=== PATIENT | male | born 1970 | race Caucasian/White ===

== ENCOUNTER 2018-01-06 13:51 | Emergency (ER) | payer BC ==
[2018-01-06] MEDS ORDERED: NA CHLORIDE 0.9% 1,000 ML ONE (16:26)
[2018-01-06 17:38] LABS: Urine Blood NEGATIVE (NEG); Urine Glucose NEGATIVE (NEG); Urine Protein NEGATIVE (NEG); Urine Specific Gravity 1.025 (1.005-1.030); Urine pH 5.5 (5.0-7.0)
[2018-01-06 17:40] LABS: Urine Bacteria <20 /HPF (NONE SEEN); Urine RBC <5 /HPF (NONE SEEN)
[2018-01-06 17:41] LABS: Calcium Oxalate Crystals- Ur FEW (NONE SEEN); Urine Culture Reflex Order NOT NEEDED
[2018-01-06 17:56] LABS: Absolute Lymphocytes (CBC) 1.3 K/uL (0.7-4.9); Absolute Monocytes 0.9 K/uL (0.1-1.3); Absolute Neutrophil 8.3 K/uL (1.8-8.0); Basophils % 0.9 % (0-1.3); Eosinophils % 32.1 % (0-4.4); Hematocrit 42.1 % (39.6-49.0); Lymphocytes % 8.4 % (15.3-44.8); MCH 28.1 pg (27.0-35.0); MCV 88.5 fL (80-100); MPV 7.4 fL (7.6-11.3); Monocytes % 5.7 % (3.3-12.3); RBC Red Blood Cell Count 4.76 M/uL (4.33-5.43)
[2018-01-06 18:15] LABS: Bicarbonate 26 mEq/L (21-31); Glucose Level 77 mg/dL (65-120); Potassium 3.8 mEq/L (3.6-5.0); Sodium Level 138 mEq/L (135-145)
[2018-01-06 18:22] LABS: ALT/SGPT 29 IU/L (10-60); AST/SGOT 26 IU/L (10-42); Albumin 3.4 g/dL (3.2-5.5); Alkaline Phosphatase 68 IU/L (42-121); Amylase Level 64 U/L (28-100); BUN Blood Urea Nitrogen 12 mg/dL (6-20); Bilirubin Direct 0.1 mg/dL (0-0.2); Bilirubin Total 0.4 mg/dL (0.3-1.2); Protein, Total 6.9 g/dL (6.0-8.3)
--- NOTE | 2018-01-06 18:56 | RAD REPORT ---
EXAM DESCRIPTION: CT - Abdomen Pelvis W Contrast - 01/06/2018 6:36 pm CLINICAL HISTORY: Leg pain and swelling, abdominal pain, diarrhea with chills COMPARISON: None. TECHNIQUE: Biphasic, helical CT imaging of the abdomen and pelvis was performed following 100 ml non -ionic IV contrast. Oral contrast was given. All CT scans are performed using dose optimization technique as appropriate and may include automated exposure control or mA/KV adjustment according to patient size. FINDINGS: No suspicious findings in the lung bases. The liver, spleen, and pancreas show no suspicious findings. Gallbladder and biliary tree are also wi thout suspicious finding. Symmetric renal function is seen with no hydronephrosis or suspicious renal mass. Renal cysts are pre sent. No pyelonephritis identifiable. Lara of the urinary bladder are thickened but the bladder is c ontracted which precludes accurate assessment. Prostate gland and seminal vesicles within normal limi ts. No specific finding for prostatitis. No gastric dilatation or gastric wall thickening. No dilated large or small bowel. The appendix is no rmal. No free air, free fluid or inflammatory stranding. No mass or bulky lymphadenopathy. Small 18 millimeter fat only umbilical hernia is present. No adrenal abnormality. No acute bony findings. Degenerative and scoliotic changes are present within degenerative change rel atively advanced for patient age. Bilateral inguinal lymph nodes are present. Normal enhancement of the common femoral arteries and vei ns. IMPRESSION: No obstruction, appendicitis, free air or surgically emergent finding. No acute process seen. Urinary bladder is too contracted to allow all accurate assessment.
[2018-01-06] MEDS ORDERED: METRONIDAZOLE 500mg IVPB 500 MG/100 ML BAG IV ONE (19:07)
[2018-01-06] MEDS ORDERED: CIPROFLOXACIN 400mg IV 0 MG/0 ML BAG IV ONE (19:07)
--- NOTE | 2018-01-06 19:40 | ER ---
Nurse's Notes [facility] Name: Theodore Harrell Age: 47 yrs Sex: Male : 1970 Arrival Date: 01/06/2018 Time: 13:55 Bed 14 Private MD: Suhail Dolan Diagnosis: Dermatitis, unspecified-eczema;Functional dyspepsia Presentation: 01/06 14:02 Presenting complaint: Patient states: "Eczema and diverticulitis has flared up. sv Bilateral feet swelling, diarrhea. c/o chills. Transition of care: patient was not received from another setting of care. Onset of symptoms was December 30, 2017. Care prior to arrival: None. 14:02 Method Of Arrival: Ambulatory sv 14:02 Acuity: ROULA 3 sv 14:45 Risk Assessment: Do you want to hurt yourself or someone else? Patient reports no rb1 desire to harm self or others. Initial Sepsis Screen: Does the patient meet any 2 criteria? No. Patient's initial sepsis screen is negative. Does the patient have a suspected source of infection? No. Patient's initial sepsis screen is negative. Historical: - Allergies: 14:05 No Known Allergies; sv - Home Meds: 14:05 Advair Diskus Inhl [Active]; Singulair Oral [Active]; Prednisone Oral [Active]; sv - PMHx: 14:05 Ankylosing Spondylitis; Arthritis; Asthma; eczema; sv - PSHx: 14:05 Cataract; sv - Immunization history:: Adult Immunizations up to date. - Social history:: Smoking status: Patient/guardian denies using tobacco. - Ebola Screening: : Patient negative for fever greater than or equal to 101.5 degrees Fahrenheit, and additional compatible Ebola Virus Disease symptoms. Screenin:45 Abuse screen: Denies threats or abuse. Nutritional screening: No deficits noted. rb1 Tuberculosis screening: No symptoms or risk factors identified. Fall Risk None identified. Assessment: 14:45 General: Appears in no apparent distress. comfortable, Behavior is calm, cooperative. rb1 Pain: Denies pain. Neuro: Level of Consciousness is awake, alert, obeys commands, Oriented to person, place, time, situation. Cardiovascular: Capillary refill < 3 seconds is brisk in bilateral fingers. Respiratory: Airway is patent Respiratory effort is even, unlabored, Respiratory pattern is regular, symmetrical. GI: Bowel sounds present X 4 quads. Abd is soft. GI: Reports diarrhea. : No signs and/or symptoms were reported regarding the genitourinary system. Derm: Skin is pink, warm \\T\\ dry. Eczema noted to entire body. Musculoskeletal: Swelling present in right foot and left foot. 15:40 Reassessment: Patient appears in no apparent distress at this time. No changes from rb1 previously documented assessment. 16:35 Reassessment: Patient appears in no apparent distress at this time. Patient and/or rb1 family updated on plan of care and expected duration. Pain level reassessed. Patient is alert, oriented x 3, equal unlabored respirations, skin warm/dry/pink. Family at bedside. 17:14 Reassessment: Patient appears in no apparent distress at this time. Patient and/or rb1 family updated on plan of care and expected duration. Pain level reassessed. Patient is alert, oriented x 3, equal unlabored respirations, skin warm/dry/pink. 18:10 Reassessment: Patient appears in no apparent distress at this time. No changes from rb1 previously documented assessment. 19:15 General: Appears in no apparent distress. comfortable, Behavior is calm, cooperative. bb Pain: Denies pain. Neuro: Level of Consciousness is awake, alert, obeys commands, Oriented to person, place, time, situation, Speech is normal. Cardiovascular: Heart tones S1 S2 present Capillary refill < 3 seconds Pulses are all present. Edema is 2+ to left ankle and right ankle. Respiratory: Airway is patent Respiratory effort is even, unlabored, Respiratory pattern is regular, symmetrical, Breath sounds are clear bilaterally. GI: Abdomen is non-distended, Bowel sounds present X 4 quads. Abd is soft and non tender X 4 quads. : No signs and/or symptoms were reported regarding the genitourinary system. Derm: Skin is dry, Skin is red, Skin temperature is warm. Musculoskeletal: Circulation, motion, and sensation intact. 20:24 Reassessment: Patient and/or family updated on plan of care and expected duration. Pain bb level reassessed. Patient is alert, oriented x 3, equal unlabored respirations, skin warm/dry/pink. pt verbalized understanding of and agrees to plan of care discharge instructions given pt ambulated with steady gait to exit accompanied by spouse. Vital Signs: 14:05 BP 139 / 97; Pulse 73; Resp 18; Temp 97.8(TE); Pulse Ox 100% ; Weight 74.84 kg; Height sv 5 ft. 10 in. (177.80 cm); Pain 0/10; 15:00 BP 109 / 76; Pulse 88; Resp 19; Pulse Ox 100% on R/A; rb1 16:00 BP 137 / 90; Pulse 60; Resp 17; Pulse Ox 100% on R/A; rb1 17:00 BP 138 / 91; Pulse 60; Resp 18; Pulse Ox 100% on R/A; rb1 18:00 BP 136 / 91; Pulse 63; Resp 19; Pulse Ox 100% on R/A; rb1 19:15 BP 146 / 94; Pulse 78; Resp 16 S; Temp 98.2(O); Pulse Ox 100% on R/A; Pain 0/10; bb 20:25 BP 124 / 94; Pulse 74; Resp 16 S; Temp 97.6(O); Pulse Ox 100% on R/A; Pain 0/10; bb 14:05 Body Mass Index 23.67 (74.84 kg, 177.80 cm) sv [place] Coma Score: 19:15 Eye Response: spontaneous(4). Verbal Response: oriented(5). Motor Response: obeys bb commands(6). Total: 15. ED Course: 13:55 Patient arrived in ED. mr 13:56 Suhail Dolan MD is Private Physician. mr 14:04 Triage completed. sv 14:06 Arm band placed on left wrist. sv 14:06 Patient placed in waiting room, Patient notified of wait time. sv 14:45 Patient has correct armband on for positive identification. Placed in gown. Bed in low rb1 position. Call light in reach. Side rails up X 1. Pulse ox on. NIBP on. 15:15 Eloina Story [facility]-C [facility]. snw 15:15 Abraham Howard MD is Attending Physician. snw 15:28 Riddhi Sarkar, VITO is Primary Nurse. rb1 16:38 Missed attempt(s): 20 gauge in right antecubital area. Bleeding controlled, band aid dh3 applied, catheter tip intact. 16:41 First set of blood cultures drawn by mi. Missed attempt(s): 20 gauge in right hand. dh3 Bleeding controlled, band aid applied, catheter tip intact. 16:56 Second set of blood cultures drawn by me. Missed attempt(s): 20 gauge in left dh3 antecubital area. Bleeding controlled, band aid applied, catheter tip intact. 16:56 Initial lab(s) drawn, by me, sent to lab. dh3 17:16 Radiology exam delayed due to lab results not completed at this time. (BUN/Creatinine). sj 17:16 Inserted saline lock: 22 gauge in left antecubital area, using aseptic technique. rb1 17:46 Radiology exam delayed due to lab results not completed at this time. (BUN/Creatinine). mw3 18:34 Patient moved to OK via wheelchair. nj 18:35 CT completed. Patient tolerated procedure well. Patient moved back from OK. nj 18:37 CT Abd/Pelvis - W/Contrast In Process Unspecified. EDMS 19:15 Pulse ox on. NIBP on. bb 19:15 No provider procedures requiring assistance completed. bb 19:36 Suhail Dolan MD is Referral Physician. hannah 20:26 IV discontinued, intact, bleeding controlled, No redness/swelling at site. Pressure bb dressing applied. Administered Medications: 17:16 Drug: NS 0.9% 1000 ml Route: IV; Rate: 125 ml/hr; Site: left antecubital; rb1 20:18 Follow up: IV Status: Order to discontinue infusion; IV Intake: 500ml bb 19:34 CANCELLED (Duplicate Order): Cipro 400 mg 200 ml IVPB once over 60 mins hannah 19:34 CANCELLED (Duplicate Order): Flagyl 500 mg 100 ml IVPB at 200 ml/hr once over 30 mins hannah 20:10 Drug: SOLU-Medrol 125 mg Route: IVP; Site: left antecubital; bb 20:23 Follow up: Response: No adverse reaction bb 20:10 Drug: predniSONE 20 mg Route: PO; bb 20:23 Follow up: Response: No adverse reaction bb Intake: 20:18 IV: 500ml; Total: 500ml. bb Outcome: 19:39 Discharge ordered by . hannah 20:25 Discharged to home ambulatory, with family. bb 20:25 Condition: stable 20:25 Discharge instructions given to patient, Instructed on discharge instructions, follow up and referral plans. medication usage, Demonstrated understanding of instructions, follow-up care, medications, Prescriptions given X 3. 20:26 Patient left the ED. bb Signatures: Dispatcher [employer] Bruna Aguayo RN RN Abraham Mosher MD MD cha Therrien, Shelly, CONCRETE WORKER-C CONCRETE WORKER-Csnw Joi Harris mr Tripp, Nadiya Castillo RN RN Riddhi Pate RN RN [facility] Madhu, Brenda Rodriguez [facility] Idalia Marshall 3 Corrections: (The following items were deleted from the chart) 14:05 14:02 Presenting complaint: Patient states: "Eczema and diverticulitis has flared up. sv Bilateral feet swelling, diarrhea. sv
--- NOTE | 2018-01-06 19:40 | EDPHYS ---
Physician Documentation [facility] Name: Theodore Harrell Age: 47 yrs Sex: Male : 1970 Arrival Date: 01/06/2018 Time: 13:55 Bed 14 Private MD: Suhail Dolan ED Physician LeeAbraham HPI: 01/06 15:55 This 47 yrs old Male presents to ER via Ambulatory with complaints of Feet snw Swelling, Abdominal Pain. 15:55 The patient presents with abdominal pain in the lower abdomen. Onset: The snw symptoms/episode began/occurred suddenly, 1 week(s) ago, and improved. The symptoms do not radiate. Associated signs and symptoms: Pertinent positives: eczema flare-up. The symptoms are described as steady. Severity of pain: At its worst the pain was mild moderate. The patient has experienced similar episodes in the past, chronically. See Dr. Dolan. Historical: - Allergies: 14:05 No Known Allergies; sv - Home Meds: 14:05 Advair Diskus Inhl [Active]; Singulair Oral [Active]; Prednisone Oral [Active]; sv - PMHx: 14:05 Ankylosing Spondylitis; Arthritis; Asthma; eczema; sv - PSHx: 14:05 Cataract; sv - Immunization history:: Adult Immunizations up to date. - Social history:: Smoking status: Patient/guardian denies using tobacco. - Ebola Screening: : Patient negative for fever greater than or equal to 101.5 degrees Fahrenheit, and additional compatible Ebola Virus Disease symptoms. ROS: 15:55 Constitutional: Negative for fever, chills, and weight loss, Eyes: Negative for injury, snw pain, redness, and discharge, ENT: Negative for injury, pain, and discharge, Neck: Negative for injury, pain, and swelling, Cardiovascular: Negative for chest pain, palpitations, and edema, Respiratory: Negative for shortness of breath, cough, wheezing, and pleuritic chest pain, Back: Negative for injury and pain, : Negative for injury, bleeding, discharge, and swelling, MS/Extremity: Negative for injury and deformity, Neuro: Negative for headache, weakness, numbness, tingling, and seizure. 15:55 Abdomen/GI: Positive for abdominal pain. 15:55 Skin: Positive for eczema flare. Exam: 15:47 Constitutional: This is a well developed, well nourished patient who is awake, alert, snw and in no acute distress. Head/Face: Normocephalic, atraumatic. Eyes: Pupils equal round and reactive to light, extra-ocular motions intact. Lids and lashes normal. Conjunctiva and sclera are non-icteric and not injected. Cornea within normal limits. Periorbital areas with no swelling, redness, or edema. ENT: Nares patent. No nasal discharge, no septal abnormalities noted. Tympanic membranes are normal and external auditory canals are clear. Oropharynx with no redness, swelling, or masses, exudates, or evidence of obstruction, uvula midline. Mucous membranes moist. Neck: Trachea midline, no thyromegaly or masses palpated, and no cervical lymphadenopathy. Supple, full range of motion without nuchal rigidity, or vertebral point tenderness. No Meningismus. Chest/axilla: Normal chest wall appearance and motion. Nontender with no deformity. No lesions are appreciated. Cardiovascular: Regular rate and rhythm with a normal S1 and S2. No gallops, murmurs, or rubs. Normal PMI, no JVD. No pulse deficits. 15:47 Back: No spinal tenderness. No costovertebral tenderness. Full range of motion. MS/ Extremity: Pulses equal, no cyanosis. Neurovascular intact. Full, normal range of motion. Neuro: Awake and alert, GCS 15, oriented to person, place, time, and situation. Cranial nerves II-XII grossly intact. Motor strength 5/5 in all extremities. Sensory grossly intact. Cerebellar exam normal. Normal gait. Psych: Awake, alert, with orientation to person, place and time. Behavior, mood, and affect are within normal limits. 15:47 Respiratory: the patient does not display signs of respiratory distress, Respirations: shallow respirations, tachypnea, Breath sounds: wheezing: inspiratory is heard in the right upper lobe. 15:47 Abdomen/GI: Inspection: distension, Bowel sounds: diminished, Palpation: nontender, in all quadrants. 15:47 Skin: Appearance: Color: erythematous, Temperature: warm, Moisture: flaky, peeling. Vital Signs: 14:05 BP 139 / 97; Pulse 73; Resp 18; Temp 97.8(TE); Pulse Ox 100% ; Weight 74.84 kg; Height sv 5 ft. 10 in. (177.80 cm); Pain 0/10; 15:00 BP 109 / 76; Pulse 88; Resp 19; Pulse Ox 100% on R/A; rb1 16:00 BP 137 / 90; Pulse 60; Resp 17; Pulse Ox 100% on R/A; rb1 17:00 BP 138 / 91; Pulse 60; Resp 18; Pulse Ox 100% on R/A; rb1 18:00 BP 136 / 91; Pulse 63; Resp 19; Pulse Ox 100% on R/A; rb1 19:15 BP 146 / 94; Pulse 78; Resp 16 S; Temp 98.2(O); Pulse Ox 100% on R/A; Pain 0/10; bb 20:25 BP 124 / 94; Pulse 74; Resp 16 S; Temp 97.6(O); Pulse Ox 100% on R/A; Pain 0/10; bb 14:05 Body Mass Index 23.67 (74.84 kg, 177.80 cm) sv [place] Coma Score: 19:15 Eye Response: spontaneous(4). Verbal Response: oriented(5). Motor Response: obeys bb commands(6). Total: 15. MDM: 15:15 Patient medically screened. snw 17:40 Data reviewed: vital signs, nurses notes. Data interpreted: Pulse oximetry: on room air snw is 100 %. Interpretation: normal. Counseling: I had a detailed discussion with the patient and/or guardian regarding: the historical points, exam findings, and any diagnostic results supporting the discharge/admit diagnosis, the presence of at least one elevated blood pressure reading (>120/80) during this emergency department visit, lab results, radiology results. Transition of care: After a detail discussion of the patient's case, care is transferred to Abraham Howard MD. 01/06 15:34 Order name: Amylase, Serum; Complete Time: 18:27 snw 01/06 15:34 Order name: Basic Metabolic Panel; Complete Time: 18:27 snw 01/06 15:34 Order name: CBC with Diff snw 01/06 15:34 Order name: Creatinine for Radiology; Complete Time: 18:27 snw 01/06 15:34 Order name: Hepatic Function; Complete Time: 18:27 snw 01/06 15:34 Order name: Urine Microscopic Only; Complete Time: 17:44 snw 01/06 15:11 Order name: CT Abd/Pelvis - W/Contrast; Complete Time: 19:05 [facility] 01/06 15:34 Order name: Blood Culture Adult (2) [facility] 01/06 17:24 Order name: Urine Dipstick--Ancillary (enter results) ag 01/06 17:25 Order name: Urine Dipstick-Ancillary; Complete Time: 17:40 EDMS 01/06 15:34 Order name: IV Saline Lock; Complete Time: 17:17 [facility] 01/06 15:34 Order name: Labs collected and sent; Complete Time: 17:17 [facility] 01/06 15:34 Order name: Urine Dipstick-Ancillary (obtain specimen); Complete Time: 19:06 [facility] 01/06 17:14 Order name: Labs - recollect needed; Complete Time: 19:07 ag Administered Medications: 17:16 Drug: NS 0.9% 1000 ml Route: IV; Rate: 125 ml/hr; Site: left antecubital; rb1 20:18 Follow up: IV Status: Order to discontinue infusion; IV Intake: 500ml bb 19:34 CANCELLED (Duplicate Order): Cipro 400 mg 200 ml IVPB once over 60 mins hannah 19:34 CANCELLED (Duplicate Order): Flagyl 500 mg 100 ml IVPB at 200 ml/hr once over 30 mins hannah 20:10 Drug: SOLU-Medrol 125 mg Route: IVP; Site: left antecubital; bb 20:23 Follow up: Response: No adverse reaction bb 20:10 Drug: predniSONE 20 mg Route: PO; bb 20:23 Follow up: Response: No adverse reaction bb Disposition: 19:43 Co-signature as Attending Physician, Abraham Howard MD I agree with the assessment and hannah plan of care. Disposition: 01/06/18 19:39 Discharged to Home. Impression: Dermatitis, unspecified - eczema, Functional dyspepsia. - Condition is Stable. - Discharge Instructions: Abdominal Pain, Adult, Rash, Abdominal Pain, Adult, [id number], Rash, [id number]. - Prescriptions for Benadryl 25 mg Oral Capsule - take 1 capsule by ORAL route every 6 hours As needed; 30 tablet. Pepcid 20 mg Oral Tablet - take 1 tablet by ORAL route every 12 hours for 10 days; 20 tablet. Medrol (Roque) 4 mg Oral Tablets, Dose Pack - take 1 tablet by ORAL route as directed - follow package instructions; 1 packet. - Medication Reconciliation Form, Thank You Letter, Antibiotic Education, Prescription Opioid Use form. - Follow up: Suhail Dloan MD; When: 2 - 3 days; Reason: Recheck today's complaints, Continuance of care, Re-evaluation by your physician. - Problem is new. - Symptoms have improved. Signatures: Dispatcher [employer] EDBruna Ashley, RN RN Abraham Mosher MD MD cha Therrien, Shelly, DEPUTY PROBATION OFFICER-C DEPUTY PROBATION OFFICER-Csnw Nadiya Bryan RN RN bb Jamia Garcia Rebecca, RN RN rb1 Corrections: (The following items were deleted from the chart) 19:34 18:36 Cipro 400 mg 200 ml IVPB once over 60 mins ordered. formerly [facility] 19:34 18:36 Flagyl 500 mg 100 ml IVPB at 200 ml/hr once over 30 mins ordered. formerly [facility] 20:26 19:39 01/06/2018 19:39 Discharged to Home. Impression: Dermatitis, unspecified - bb eczema; Functional dyspepsia. Condition is Stable. Forms are Medication Reconciliation Form, Thank You Letter, Antibiotic Education, Prescription Opioid Use. Follow up: Suhail Dolan; When: 2 - 3 days; Reason: Recheck today's complaints, Continuance of care, Re-evaluation by your physician. Problem is new. Symptoms have improved. hannah
[2018-01-06] MEDS ORDERED: predniSONE 20 MG TAB ONE (20:10)
[2018-01-06] MEDS ORDERED: METHYLPREDNISOLONE 125 MG INJ ONE (20:10)
[2018-01-06 20:37] VITALS: O2SAT 100
[2018-01-06 20:44] VITALS: BP 124/94; TEMP 97.6
[2018-01-06 21:03] LABS: Blood Morphology Comment NOT SEEN (NOT SEEN); Platelet Estimate INCR
== END 2018-01-06 20:26 | disposition home or self-care (01) ==
LOC: ER 13:51
DX: K30 Functional dyspepsia (principal); L30.9 Dermatitis, unspecified; J45.909 Unspecified asthma, uncomplicated
CPT/HCPCS: 36415; 74177; 80048; 80076; 81003; 81015; 82150; 85025; 87040; 96361; 96374; 99284; J0744; J2930; J7030; J7512; Q9967

== ENCOUNTER 2018-04-12 13:10 | Inpatient (IN) | payer BC ==
[2018-04-12 13:44] LABS: Absolute Lymphocytes (CBC) 0.7 K/uL (0.7-4.9); Absolute Monocytes 1.2 K/uL (0.1-1.3); Basophils % 0.2 % (0-1.3); Eosinophils % 0.5 % (0-4.4); Hematocrit 43.5 % (39.6-49.0); Lymphocytes % 3.2 % (15.3-44.8); MCH 29.7 pg (27.0-35.0); MCV 87.5 fL (80-100); RBC Red Blood Cell Count 4.97 M/uL (4.33-5.43)
[2018-04-12] MEDS ORDERED: NA CHLORIDE 0.9% 1,000 ML ONE (13:52)
[2018-04-12] MEDS ORDERED: MORPHINE 4 MG/ML SYR ONE (13:52)
[2018-04-12] MEDS ORDERED: ONDANSETRON 4 MG/2 ML VIAL ONE (13:52)
[2018-04-12 14:20] LABS: Albumin 3.2 g/dL (3.4-5.0); Bilirubin Direct 0.2 mg/dL (0-0.2); Bilirubin Total 0.7 mg/dL (0.2-1.0); Protein, Total 7.2 g/dL (6.4-8.2)
[2018-04-12] MEDS ORDERED: PIPER/TAZO/NS 3.375gm 3.375 GM/100 ML BAG ONE (14:27)
[2018-04-12] MEDS ORDERED: METRONIDAZOLE 500mg IVPB 500 MG/100 ML BAG IV ONE (14:27)
--- NOTE | 2018-04-12 14:32 | RAD REPORT ---
EXAM DESCRIPTION: CT - Abdomen Pelvis W Contrast - 04/12/2018 2:12 pm CLINICAL HISTORY: ABD PAIN generalized abdominal pain COMPARISON: Abdomen Pelvis W Contrast dated 01/06/2018 TECHNIQUE: Computed axial tomography of the abdomen pelvis was obtained. 100 cc Isovue-300 was admin istered intravenously. Oral contrast was not requested which limits evaluation of bowel. All CT scans are performed using dose optimization technique as appropriate and may include automated exposure control or mA/KV adjustment according to patient size. FINDINGS: The liver, spleen, pancreas, adrenal and kidneys appear unremarkable. The wall of the sigmoid colon is thickened. Diverticula are present. Stranding is seen within the adj acent fat. A 2 centimeter abscess lies to the left of the sigmoid colon. A small to moderate amount o f pneumoperitoneum is present within the abdomen and upper pelvis. Fluid-filled small-bowel loops are upper limits normal caliber. Small amount ascites is present. A small umbilical hernia is present. Small bilateral hernias are present. The prostate gland is mildl y to moderately enlarged IMPRESSION: Sigmoid diverticulitis with 2 centimeter abscess. Small to moderate amount of pneumoperitoneum. This probably indicates a perforated viscus. The site i s not clearly delineated. However given the diverticulitis a perforated diverticulum is considered mo st likely Examination was discussed with Dr Mora in the Emergency Room at 2:25 p.m. 04/12/2018
[2018-04-12 14:57] LABS: Blood Morphology Comment NOT SEEN (NOT SEEN); Platelet Estimate ADEQ
[2018-04-12 15:18] LABS: Urine Bacteria NONE SEEN /HPF (NONE SEEN); Urine RBC <5 /HPF (NONE SEEN)
[2018-04-12 15:19] LABS: Urine Culture Reflex Order NOT NEEDED
[2018-04-12] MEDS: Ringers Lactate 1,000 ML IV SCH ×2 (16:00→20:24)
[2018-04-12] MEDS: ERTAPENEM NA 1 GM in NA CHLORIDE 0.9% 100 ML IVPB SCH (16:00)
--- NOTE | 2018-04-12 16:05 | P.HP ---
Certification for Inpatient Patient admitted to: Inpatient With expected LOS: >2 Midnights Practitioner: I am a practitioner with admitting privileges, knowledge of patient current condition, hospital course, and medical plan of care. Services: Services provided to patient in accordance with Admission requirements found in Title 42 Section 412.3 of the Code of Federal Regulations Patient History Date of Service: 04/12/18 Reason for admission: Abdominal pain perforated diverticulitis History of Present Illness: Patient is 47 years of age admitted with sudden onset of abdominal pain left lower quadrant and was found to have perforated diverticulitis currently he complains of abdominal pain. No other complaints seen by general surgery will be admitted to the floor for IV antibiotics Allergies No Known Allergies Allergy (Unverified 01/04/16 17:47) Home medications list reviewed: No - Past Medical/Surgical History -: Ankylosing spondylitis -: Asthma -: Eczema Review of Systems General: Malaise Respiratory: Shortness of Breath Gastrointestinal: Abdominal Pain Integumentary: Rash Physical Examination - Vital Signs Temperature: 97.6 F Blood Pressure: 127/94 Pulse: 74 Respirations: 16 Pulse Ox (%): 100 - Physical Exam General: Alert, Oriented x3 HEENT: Atraumatic Neck: Supple Respiratory: Expiratory wheezes Cardiovascular: Regular rate/rhythm, Normal S1 S2, Edema (On +edema) Gastrointestinal: Normal bowel sounds, Tenderness (Tenderness in the left lower quadrant) Musculoskeletal: No clubbing, Swelling Integumentary: Rash(es) Neurological: Normal speech (Patient has generalized eczema) - Studies Laboratory Data (last 24 hrs) 04/12/18 14:00: Creatinine 0.90 04/12/18 14:00: WBC 23.0 H*, Hgb 14.7, Hct 43.5, Plt Count 392 04/12/18 14:00: Sodium 142, Potassium 4.0, BUN 21 H, Creatinine 1.00, Glucose 111 H, Total Bilirubin 0.7, AST 12 L, ALT 24, Alkaline Phosphatase 60, Lipase 68 L Assessment and Plan - Problems (Diagnosis) (1) Perforation of sigmoid colon due to diverticulitis Current Visit: Yes Status: Acute Plan: Patient is 47 years of age with a history of asthma eczema and ankylosing spondylitis admitted with perforated sigmoid diverticulitis white count is elevated patient admitted to the hospital seen by general surgery IV antibiotics for now Radiology report : Sigmoid diverticulitis with 2 centimeter abscess. Small to moderate amount of pneumoperitoneum. This probably indicates a perforated viscus. The site is not clearly delineated. However given the diverticulitis a perforated diverticulum is considered most likely - Advance Directives Does patient have a Living Will: No Does patient have a Durable POA for Healthcare: No
[2018-04-12] MEDS: INSULIN -REGULAR HUMAN 50 UNIT/0.5 ML ML SQ SCH ×3 (16:30→23:59)
--- NOTE | 2018-04-12 17:11 | ER ---
Nurse's Notes [facility] Name: Theodore Harrell Age: 47 yrs Sex: Male : 1970 Arrival Date: 04/12/2018 Time: 13:13 Bed 27 Private MD: Suhail Dolan Diagnosis: Diverticulitis, diverticular abscess, pneumopertineum, perforated viscous Presentation: 04/12 13:24 Presenting complaint: Patient states: generalized abd pain that radiates toward back ss with abd distention that began suddenly at 11 PM last night. Transition of care: patient was not received from another setting of care. Onset of symptoms was April 11, 2018. Risk Assessment: Do you want to hurt yourself or someone else? Patient reports no desire to harm self or others. Initial Sepsis Screen: Does the patient meet any 2 criteria? No. Patient's initial sepsis screen is negative. Does the patient have a suspected source of infection? No. Patient's initial sepsis screen is negative. Care prior to arrival: None. 13:24 Method Of Arrival: Ambulatory ss 13:24 Acuity: ROULA 2 ss Triage Assessment: 14:12 General: Appears in no apparent distress. uncomfortable. Pain: Complains of pain in wh abdomen Pain began 12 hours ago Also complains of loose watery stool. GI: Abdomen is round distended, Bowel sounds present X 4 quads. Abd is rigid Reports belly pain for the last 12 hours. 14:14 General: Behavior is calm, cooperative, appropriate for age. Historical: - Allergies: 15:49 No Known Allergies; - Home Meds: 15:48 Advair Diskus Inhl 1 puff 2 times per day [Active]; prednisone 20 mg oral tab once wh daily [Active]; Singulair Oral 1 tab once daily [Active]; proair as needed [Active]; celecoxib 100 mg Oral cap 2 caps once daily [Active]; - PMHx: 13:26 Ankylosing Spondylitis; Arthritis; Asthma; eczema; Diverticulitis; ss - Immunization history:: Adult Immunizations up to date. - Social history:: Smoking status: Patient uses tobacco products, chewing tobacco. - Ebola Screening: : Patient denies exposure to infectious person Patient denies travel to an Ebola-affected area in the 21 days before illness onset. Screenin:12 Abuse screen: Denies threats or abuse. Denies injuries from another. Nutritional wh screening: No deficits noted. Tuberculosis screening: No symptoms or risk factors identified. Fall Risk None identified. Assessment: 14:16 General: Appears in no apparent distress. uncomfortable, Behavior is calm, cooperative, wh appropriate for age. Pain: Complains of pain in abdomen Pain does not radiate. Pain began 12 hours ago Is continuous. Neuro: Level of Consciousness is awake, alert, obeys commands, House Carpenter Helper are equal bilaterally. Cardiovascular: Heart tones S1 S2 Capillary refill < 3 seconds. Respiratory: Airway is patent Respiratory effort is even, unlabored, Respiratory pattern is regular, symmetrical, Breath sounds are clear bilaterally. GI: Abdomen is distended, Bowel sounds present X 4 quads. Abd is rigid Reports abd pain in the last 12 hours with loose watery stool. : No signs and/or symptoms were reported regarding the genitourinary system. EENT: No signs and/or symptoms were reported regarding the EENT system. Derm: Skin is intact, is healthy with good turgor, Skin is pink, warm \T\ dry. normal. Musculoskeletal: Range of motion: intact in all extremities. 14:42 Reassessment: Patient appears in no apparent distress at this time. Patient and/or wh family updated on plan of care and expected duration. Pain level reassessed. Patient is alert, oriented x 3, equal unlabored respirations, skin warm/dry/pink. 15:43 Reassessment: Patient appears in no apparent distress at this time. Patient and/or wh family updated on plan of care and expected duration. Pain level reassessed. Patient is alert, oriented x 3, equal unlabored respirations, skin warm/dry/pink. 16:53 Reassessment: Patient appears in no apparent distress at this time. Patient and/or wh family updated on plan of care and expected duration. Pain level reassessed. Patient is alert, oriented x 3, equal unlabored respirations, skin warm/dry/pink. 18:16 Reassessment: Patient appears in no apparent distress at this time. Patient and/or wh family updated on plan of care and expected duration. Pain level reassessed. Patient is alert, oriented x 3, equal unlabored respirations, skin warm/dry/pink. Vital Signs: 13:26 BP 137 / 95; Resp 22; Weight 72.57 kg; Height 5 ft. 10 in. (177.80 cm); ss 14:42 BP 144 / 87; Pulse 71; Resp 18; Pulse Ox 97% on R/A; wh 15:43 BP 130 / 77; Pulse 74; Resp 17; Pulse Ox 96% on R/A; wh 16:53 BP 125 / 76; Pulse 70; Resp 17; Pulse Ox 94% on R/A; wh 18:16 BP 115 / 74; Pulse 72; Resp 18; Temp 99.3; Pulse Ox 95% on R/A; wh 13:26 Body Mass Index 22.96 (72.57 kg, 177.80 cm) ED Course: 13:13 Patient arrived in ED. mr 13:13 Suhail Dolan MD is Private Physician. mr 13:22 Faizan Mora MD is Attending Physician. kdr 13:25 Triage completed. ss 13:26 Arm band placed on right wrist. ss 13:27 Nir Lantigua is Primary Nurse. wh 13:40 Inserted saline lock: 20 gauge in right antecubital area, using aseptic technique. wh Blood collected. 14:12 CT completed. Patient moved to CT via stretcher. Patient moved back from CT. bq 14:12 CT Abd/Pelvis - W/Contrast In Process Unspecified. EDMS 14:16 Patient has correct armband on for positive identification. Placed in gown. Bed in low wh position. Call light in reach. Side rails up X 1. senior mortgage underwriter on. Pulse ox on. NIBP on. 16:39 Eric Kaye MD is Hospitalizing Provider. kdr 18:18 No provider procedures requiring assistance completed. Patient admitted, IV remains in place. Administered Medications: 13:44 CANCELLED (Duplicate Order): morphine 4 mg IVP once 13:44 CANCELLED (Duplicate Order): Zofran 4 mg IVP once; over 2 minutes 13:52 Drug: Zofran 4 mg Route: IVP; Site: right antecubital; 16:55 Follow up: Response: No adverse reaction 13:52 Drug: NS 0.9% 1000 ml Route: IV; Rate: 1 bolus; Site: right antecubital; 16:56 Follow up: IV Status: Completed infusion 13:53 Drug: morphine 4 mg Route: IVP; Site: right antecubital; 16:55 Follow up: Response: No adverse reaction 14:42 Drug: Zosyn 3.375 grams Route: IVPB; Infused Over: 60 mins; Site: right antecubital; 16:16 Follow up: Response: No adverse reaction; IV Status: Completed infusion 15:36 Drug: Flagyl 500 mg Volume: 100 ml; Route: IVPB; Rate: 200 ml/hr; Infused Over: 30 wh mins; Site: right antecubital; 16:17 Follow up: Response: No adverse reaction; Rate change ml/hr; IV Status: Completed wh infusion 16:16 Drug: InvANZ 1 grams Route: IVPB; Infused Over: 30 mins; Site: right antecubital; 16:55 Follow up: Response: No adverse reaction; IV Status: Completed infusion Outcome: 16:41 Decision to Hospitalize by Provider. kdr 18:19 Admitted to Med/surg accompanied by nurse, family with patient, via wheelchair, room 231, with chart, Report called to Angie PADRON 18:19 Condition: good 18:19 Discharge instructions given to patient, family, Instructed on the need for admit, Demonstrated understanding of 18:19 Patient left the ED. Signatures: Dispatcher [employer] EDMS Faizan Mora MD MD [facility] Joi Harris mr P[place]te Mark Shelby, RN RN [place]ir Corrections: (The following items were deleted from the chart) 15:49 13:26 Allergies: No Known Allergies; [facility] 15:49 13:26 Home Meds: Advair Diskus Inhl; [facility] 15:49 13:26 Home Meds: Prednisone Oral; [facility] 15:49 13:26 Home Meds: Singulair Oral; [facility] 15:49 13:26 Home Meds: proair; [facility] 18:24 18:16 BP 115 / 74; Pulse 72bpm; Resp 18bpm; Pulse Ox 95% RA; [facility]
--- NOTE | 2018-04-12 17:11 | EDPHYS ---
Physician Documentation [facility] Name: Theodore Harrell Age: 47 yrs Sex: Male : 1970 Arrival Date: 04/12/2018 Time: 13:13 Bed 27 Private MD: Suhail Dolan ED Physician Faizan Mora HPI: 04/12 16:47 This 47 yrs old Male presents to ER via Ambulatory with complaints of kdr Abdominal Pain. 16:47 The patient presents with abdominal pain in the upper abdomen, in the left lower kdr quadrant. Onset: The symptoms/episode began/occurred suddenly, last night. The symptoms do not radiate. Associated signs and symptoms: Pertinent positives: nausea, Pertinent negatives: chest pain, constipation, diarrhea, dysuria, fever, headache, vomiting. The symptoms are described as burning, constant, sharp, steady. Modifying factors: The symptoms are alleviated by antacids, the symptoms are aggravated by coughing, breathing deeply, emotional upset, food, home stress, jumping, movement. Severity of pain: At its worst the pain was moderate in the emergency department the pain has improved. The patient has not recently seen a physician. Historical: - Allergies: 15:49 No Known Allergies; wh - Home Meds: 15:48 Advair Diskus Inhl 1 puff 2 times per day [Active]; prednisone 20 mg oral tab once wh daily [Active]; Singulair Oral 1 tab once daily [Active]; proair as needed [Active]; celecoxib 100 mg Oral cap 2 caps once daily [Active]; - PMHx: 13:26 Ankylosing Spondylitis; Arthritis; Asthma; eczema; Diverticulitis; ss - Immunization history:: Adult Immunizations up to date. - Social history:: Smoking status: Patient uses tobacco products, chewing tobacco. - Ebola Screening: : Patient denies exposure to infectious person Patient denies travel to an Ebola-affected area in the 21 days before illness onset. ROS: 16:47 Constitutional: Negative for fever, chills, and weight loss, Eyes: Negative for injury, kdr pain, redness, and discharge, Neck: Negative for injury, pain, and swelling, Cardiovascular: Negative for chest pain, palpitations, and edema, Respiratory: Negative for shortness of breath, cough, wheezing, and pleuritic chest pain, Back: Negative for injury and pain, : Negative for injury, bleeding, discharge, and swelling, MS/Extremity: Negative for injury and deformity, Skin: Negative for injury, rash, and discoloration, Neuro: Negative for headache, weakness, numbness, tingling, and seizure activity. Psych: Negative for depression, anxiety, suicide ideation, homicidal ideation, and hallucinations, Allergy/Immunology: Negative for hives, rash, and allergies, Endocrine: Negative for neck swelling, polydipsia, polyuria, polyphagia, and marked weight changes, Hematologic/Lymphatic: Negative for swollen nodes, abnormal bleeding, and unusual bruising. 16:47 Abdomen/GI: Positive for abdominal pain, nausea, abdominal distension, Negative for black/tarry stool, rectal pain, rectal bleeding. Exam: 17:24 Constitutional: This is a well developed, well nourished patient who is awake, alert, kdr and in moderate distress. Head/Face: Normocephalic, atraumatic. Eyes: Pupils equal round and reactive to light, extra-ocular motions intact. Lids and lashes normal. Conjunctiva and sclera are non-icteric and not injected. Cornea within normal limits. Periorbital areas with no swelling, redness, or edema. Neck: Trachea midline, no thyromegaly or masses palpated, and no cervical lymphadenopathy. Supple, full range of motion without nuchal rigidity, or vertebral point tenderness. No Meningismus. Chest/axilla: Normal chest wall appearance and motion. Nontender with no deformity. No lesions are appreciated. Cardiovascular: Regular rate and rhythm with a normal S1 and S2. No gallops, murmurs, or rubs. Normal PMI, no JVD. No pulse deficits. Respiratory: Lungs have equal breath sounds bilaterally, clear to auscultation and percussion. No rales, rhonchi or wheezes noted. No increased work of breathing, no retractions or nasal flaring. Back: No spinal tenderness. No costovertebral tenderness. Full range of motion. Skin: Warm, dry with normal turgor. Normal color with no rashes, no lesions, and no evidence of cellulitis. MS/ Extremity: Pulses equal, no cyanosis. Neurovascular intact. Full, normal range of motion. Neuro: Awake and alert, GCS 15, oriented to person, place, time, and situation. Cranial nerves II-XII grossly intact. Motor strength 5/5 in all extremities. Sensory grossly intact. Cerebellar exam normal. Normal gait. Psych: Awake, alert, with orientation to person, place and time. Behavior, mood, and affect are within normal limits. 17:24 Abdomen/GI: Inspection: distension, that is mild, Bowel sounds: high pitched, hyperactive, in all quadrants, Palpation: mild abdominal tenderness, rebound tenderness, is not appreciated, voluntary guarding. Vital Signs: 13:26 BP 137 / 95; Resp 22; Weight 72.57 kg; Height 5 ft. 10 in. (177.80 cm); ss 14:42 BP 144 / 87; Pulse 71; Resp 18; Pulse Ox 97% on R/A; wh 15:43 BP 130 / 77; Pulse 74; Resp 17; Pulse Ox 96% on R/A; wh 16:53 BP 125 / 76; Pulse 70; Resp 17; Pulse Ox 94% on R/A; wh 18:16 BP 115 / 74; Pulse 72; Resp 18; Temp 99.3; Pulse Ox 95% on R/A; wh 13:26 Body Mass Index 22.96 (72.57 kg, 177.80 cm) ss MDM: 16:41 Patient medically screened. kdr 17:24 Data reviewed: vital signs, nurses notes. Counseling: I had a detailed discussion with kdr the patient and/or guardian regarding: the historical points, exam findings, and any diagnostic results supporting the discharge/admit diagnosis, lab results, radiology results, the need for further work-up and treatment in the hospital. 04/12 13:22 Order name: Basic Metabolic Panel [facility] 04/12 13:22 Order name: CBC with Diff [facility] 04/12 13:22 Order name: Creatinine for Radiology [facility] 04/12 13:22 Order name: Hepatic Function; Complete Time: 14:38 [facility] 04/12 13:22 Order name: Lipase; Complete Time: 14:38 [facility] 04/12 13:22 Order name: Urine Microscopic Only [facility] 04/12 13:22 Order name: Basic Metabolic Panel; Complete Time: 14:38 EDMS 04/12 13:22 Order name: CBC with Automated Diff EDMS 04/12 13:22 Order name: Creatinine (Radiology Only); Complete Time: 14:38 EDMS 04/12 14:17 Order name: Manual Differential [facility] 04/12 15:33 Order name: CBC with Automated Diff EDMS 04/12 15:33 Order name: CBC with Automated Diff EDMS 04/12 15:33 Order name: CBC with Automated Diff EDMS 04/12 15:33 Order name: CBC with Automated Diff EDMS 04/12 15:33 Order name: CBC with Automated Diff EDMS 04/12 15:33 Order name: CBC with Automated Diff EDMS 04/12 15:33 Order name: CBC with Automated Diff EDMS 04/12 15:33 Order name: Comprehensive Metabolic Panel EDMS 04/12 15:33 Order name: Comprehensive Metabolic Panel EDMS 04/12 15:33 Order name: Comprehensive Metabolic Panel EDMS 04/12 15:33 Order name: Comprehensive Metabolic Panel EDMS 04/12 15:33 Order name: Comprehensive Metabolic Panel EDMS 04/12 15:33 Order name: Comprehensive Metabolic Panel EDMS 04/12 15:33 Order name: Comprehensive Metabolic Panel EDMS 04/12 15:33 Order name: Magnesium EDMS 04/12 15:33 Order name: Magnesium EDMS 04/12 15:34 Order name: Magnesium EDMS 04/12 15:34 Order name: Magnesium EDMS 04/12 15:34 Order name: Magnesium EDMS 04/12 15:34 Order name: Magnesium EDMS 04/12 13:22 Order name: IV Saline Lock; Complete Time: 13:38 kdr 04/12 13:22 Order name: Labs collected and sent; Complete Time: 13:38 kdr 04/12 13:22 Order name: Urine Dipstick-Ancillary (obtain specimen); Complete Time: 15:06 kdr 04/12 13:44 Order name: CT Abd/Pelvis - W/Contrast; Complete Time: 14:38 kdr 04/12 13:49 Order name: Labs - recollect needed; Complete Time: 13:58 eb 04/12 15:33 Order name: NPO EDMS 04/12 15:34 Order name: Magnesium EDMS 04/12 15:34 Order name: Phosphorus EDMS 04/12 15:34 Order name: Phosphorus EDMS 04/12 15:34 Order name: Phosphorus EDMS 04/12 15:34 Order name: Phosphorus EDMS 04/12 15:34 Order name: Phosphorus EDMS 04/12 15:34 Order name: Phosphorus EDMS 04/12 15:34 Order name: Phosphorus EDMS 04/12 15:34 Order name: Protime (+INR) EDMS 04/12 15:34 Order name: Protime (+INR) [facility] 04/12 16:06 Order name: CBC without Diff [facility] 04/12 16:37 Order name: Urine Dipstick--Ancillary (enter results) eb Administered Medications: 13:44 CANCELLED (Duplicate Order): morphine 4 mg IVP once 13:44 CANCELLED (Duplicate Order): Zofran 4 mg IVP once; over 2 minutes 13:52 Drug: Zofran 4 mg Route: IVP; Site: right antecubital; 16:55 Follow up: Response: No adverse reaction 13:52 Drug: NS 0.9% 1000 ml Route: IV; Rate: 1 bolus; Site: right antecubital; 16:56 Follow up: IV Status: Completed infusion 13:53 Drug: morphine 4 mg Route: IVP; Site: right antecubital; 16:55 Follow up: Response: No adverse reaction 14:42 Drug: Zosyn 3.375 grams Route: IVPB; Infused Over: 60 mins; Site: right antecubital; 16:16 Follow up: Response: No adverse reaction; IV Status: Completed infusion 15:36 Drug: Flagyl 500 mg Volume: 100 ml; Route: IVPB; Rate: 200 ml/hr; Infused Over: 30 mins; Site: right antecubital; 16:17 Follow up: Response: No adverse reaction; Rate change ml/hr; IV Status: Completed infusion 16:16 Drug: InvANZ 1 grams Route: IVPB; Infused Over: 30 mins; Site: right antecubital; 16:55 Follow up: Response: No adverse reaction; IV Status: Completed infusion Disposition: 04/12/18 16:41 Hospitalization ordered by Eric Kaye for Inpatient Admission. Preliminary diagnosis is Diverticulitis, diverticular abscess, pneumopertineum, perforated viscous. - Bed requested for Telemetry/MedSurg (Inpatient). - Status is Inpatient Admission. - Condition is Fair. - Problem is an acute exacerbation. - Symptoms have improved. UTI on Admission? No Signatures: Dispatcher [employer] EDNM Faizan Mora MD MD kdr Smirch, Shelby, RN RN [facility] Pacheco, Shana eb Corrections: (The following items were deleted from the chart) 13:44 13:43 morphine 4 mg IVP once ordered. [facility] 13:44 13:43 Zofran 4 mg IVP once; over 2 minutes ordered. [facility] 15:49 13:26 Allergies: No Known Allergies; [facility] 15:49 13:26 Home Meds: Advair Diskus Inhl; [facility] 15:49 13:26 Home Meds: Prednisone Oral; [facility] 15:49 13:26 Home Meds: Singulair Oral; [facility] 15:49 13:26 Home Meds: proair; [facility] 16:05 16:04 Blood Culture ordered. EDMS EDMS 17:30 16:41 Hospitalization Ordered by Eric Kaye MD for Inpatient Admission. eb Preliminary diagnosis is Diverticulitis, diverticular abscess, pneumopertineum, perforated viscous. Bed requested for Telemetry/MedSurg (Inpatient). Status is Inpatient Admission. Condition is Fair. Problem is an acute exacerbation. Symptoms have improved. UTI on Admission? No. kdr 18:19 17:30 04/12/2018 16:41 Hospitalization Ordered by Eric Kaye MD for Inpatient Admission. Preliminary diagnosis is Diverticulitis, diverticular abscess, pneumopertineum, perforated viscous. Bed requested for Telemetry/MedSurg (Inpatient). Status is Inpatient Admission. Condition is Fair. Problem is an acute exacerbation. Symptoms have improved. UTI on Admission? No. eb
[2018-04-12] MEDS: ARFORMOTEROL TARTRATE 15 MCG/2 ML VIAL.NEB NEB SCH ×2 (17:22→19:44)
--- NOTE | 2018-04-12 18:20 | CON ---
Date of Consultation: 04/12/2018 Brief History Of Present Illness: The patient is a 47-year-old male with a past history of diverticu litis x2 episodes in the past year, treated outpatient with antibiotics only on those occasions, who presents with approximately 1-day history of acute onset of abdominal pain globally with worsening do wn the left lower quadrant. He had some mild nausea. No vomiting. He continued to have bowel funct ion. His pain was significant. It is the worst it has ever been with respect to his diverticulitis. He came to the emergency room with the above-stated complaints. He has had some low-grade fever an d chills as well. No other complaints at this time. Since his admission to the hospital, he has rec eived antibiotics as well as IV fluids and pain medication. His symptoms have significantly improved since his admission, although continues to be present. Past Medical History: Significant for rheumatoid arthritis; pneumonia; eczema; and diverticulitis x2 episodes within the past year, both treated as outpatient with antibiotics. Past Surgical History: Elbow surgery, cataract surgery only. He has never had a colonoscopy before. Allergies: NO KNOWN DRUG ALLERGIES. Medications: None. Social History: He denies smoking, alcohol, or recreational drug use. Family History: Reviewed and noncontributory. Review of Systems: A 10-point review of systems other than HPI, denies. Physical Examination: General: At the time of my examination, he is awake, alert, and oriented. Psychiatric: He is appropriate and conversive. He is in no apparent distress. HEENT: Normocephalic. His sclerae are anicteric. His mucous membranes are moist. His dentition is poor. His oropharynx is clear otherwise. Neck: Supple. No JVD. Chest: Normal expansion and excursion. Cardiovascular: Regular rate and rhythm. Pulmonary: Clear to auscultation bilaterally. Abdomen: Slightly distended, soft, and he has moderate pain to palpation globally, worse in the supr apubic position. There is no focal peritonitis. No rebound. No guarding. Additionally, on the abd ominal exam, he has a small fat containing umbilical hernia. Extremities: No clubbing, cyanosis, or edema. He has had rheumatoid changes to the extremities on f ocused examination of the hands. Skin: Warm and dry. However, he has eczema over his abdomen. Laboratory Data: Reveals a white blood cell count of 22,000, hemoglobin 14.7, hematocrit of 43.5, pl atelet count 392, neutrophils 91%. His sodium is 142, potassium 4.0, chloride 109, carbon dioxide 28 , BUN 21, creatinine 0.9, glucose is 111, calcium 8.3, direct bilirubin 0.7, AST 12, ALT 24, lipase i s 68, alkaline phosphatase is 60. His CT scan performed of the abdomen and pelvis was officially lindsey d by Dr. Petersen as wall of the sigmoid colon is thickened. Diverticular present. Stranding is see n within the adjacent fat. A 2 cm abscess lies to the left of the sigmoid colon. A [id number] amount of pneumoperitoneum is present within the abdomen, however, pelvis fluid-filled small bowel loops to upper limit of normal. Small amount of ascites is present. Small umbilical hernia is prese nt. Small bilateral inguinal hernia present. The prostate gland is [id number] large. Impression: Sigmoid diverticulitis with a 2 cm abscess; [id number] pneumoperitoneum, probably indicating perforated viscus, the site is not clear to delineate, however, he has a diverticulitis a nd perforated diverticula is most likely. Assessment And Plan: This is a 47-year-old male who comes in with a history of diverticulitis, but n ow with complicated diverticulitis and diverticular abscess. 1.IV fluid hydration. 2.Antibiotic coverage. 3.I have discussed the risks, benefits, and alternatives of operative versus nonoperative interventi on including, but not limited to bleeding, infection, damage to surrounding tissue, need for further operating or procedures, the possibility that there could be injury to ureters as well as bladder as well as a colostomy creation, which may be permanent in a situation like this should emergency surger y be required. They agree to proceed with nonoperative management at this time with antibiotics and serial abdominal exams. Continue medical management per admitting physician. I will follow along you. JAIME/RAMIREZ Voice ID: [id number] Report ID: [id number]
[2018-04-12] MEDS: HYDROMORPHONE HCL 1 MG/ML INJ IV PRN ×2 (18:44→20:23)
[2018-04-12] MEDS: ONDANSETRON 4 MG/2 ML VIAL IV PRN (18:44)
[2018-04-12] MEDS: ALBUTEROL 2.5 MG/3 ML NEB SOL NEB PRN (19:44)
[2018-04-12 20:40] LABS: Urine Blood TRACE (NEG); Urine Glucose NEGATIVE (NEG); Urine Protein NEGATIVE (NEG); Urine Specific Gravity 1.015 (1.005-1.030); Urine pH 8.5 (5.0-7.0)
[2018-04-13] MEDS ORDERED: D50W 25 GM/50 ML SYRINGE IV ONE ×2 (00:04)
[2018-04-13] MEDS: ONDANSETRON 4 MG/2 ML VIAL IV PRN (00:33)
[2018-04-13] MEDS: HYDROMORPHONE HCL 1 MG/ML INJ IV PRN ×5 (00:33→15:34)
[2018-04-13] MEDS: ALBUTEROL 2.5 MG/3 ML NEB SOL NEB PRN ×3 (00:47→19:52)
[2018-04-13] MEDS: Ringers Lactate 1,000 ML IV SCH ×3 (05:20→18:40)
[2018-04-13 05:22] LABS: Absolute Lymphocytes (CBC) 0.7 K/uL (0.7-4.9); Absolute Monocytes 1.4 K/uL (0.1-1.3); Absolute Neutrophil 14.8 K/uL (1.8-8.0); Basophils % 0.3 % (0-1.3); Eosinophils % 0.9 % (0-4.4); Hematocrit 39.2 % (39.6-49.0); Lymphocytes % 4.3 % (15.3-44.8); MCH 29.4 pg (27.0-35.0); MCV 88.6 fL (80-100); MPV 7.9 fL (7.6-11.3); Monocytes % 8.3 % (3.3-12.3); RBC Red Blood Cell Count 4.42 M/uL (4.33-5.43)
[2018-04-13 05:28] LABS: Protime INR 1.36
[2018-04-13 05:32] LABS: ALT/SGPT 18 U/L (12-78); AST/SGOT 9 U/L (15-37); Alkaline Phosphatase 54 U/L (45-117); BUN Blood Urea Nitrogen 20 mg/dL (7-18); Bicarbonate 27 mmol/L (21-32); Bilirubin Total 0.8 mg/dL (0.2-1.0); Glucose Level 81 mg/dL (74-106); Magnesium 2.1 mg/dL (1.8-2.4); Phosphorus 2.6 mg/dL (2.5-4.9); Potassium 3.7 mmol/L (3.5-5.1); Protein, Total 6.9 g/dL (6.4-8.2); Sodium Level 141 mmol/L (136-145)
[2018-04-13] MEDS ORDERED: KCL 20 MEQ/100 mL IVPB 20 MEQ/100 ML BAG IV SCH (05:43)
[2018-04-13] MEDS: INSULIN -REGULAR HUMAN 50 UNIT/0.5 ML ML SQ SCH ×3 (06:00→18:00)
[2018-04-13] MEDS: D50W 25 GM/50 ML SYRINGE IV PRN ×2 (06:09→20:06)
[2018-04-13] MEDS: ARFORMOTEROL TARTRATE 15 MCG/2 ML VIAL.NEB NEB SCH ×2 (07:52→19:52)
[2018-04-13] MEDS ORDERED: HYDROMORPHONE HCL 2 MG/ML inj IV ONE (09:27)
[2018-04-13] MEDS: TRIAMCINOLONE 0.1% CREAM 15GM TOP SCH ×2 (09:49→20:08)
[2018-04-13] MEDS: MONTELUKAST 10 MG TAB PO SCH (09:54)
[2018-04-13] MEDS: predniSONE 20 MG TAB PO SCH (09:54)
--- NOTE | 2018-04-13 11:10 | P.PN ---
Subjective Date of Service: 04/13/18 Chief Complaint: Abdominal pain perforated diverticulitis Subjective: No new changes (Patient states pain improving, but has occasional wave of pain, no nausea, +passing gas.) Physical Examination - Vital Signs Temperature: 97.8 F Blood Pressure: 131/75 Pulse: 75 Respirations: 18 Pulse Ox (%): 97 - Physical Exam General: Alert, Cooperative, Mild distress HEENT: Mucous membr. moist/pink Gastrointestinal: Other (slightly firmer than prior exam, but patient was in chair and just walked over to bed to lie down, similar distention, similar tenderness to prior exam. ) Musculoskeletal: Other (rheumatoid joints ) Integumentary: Other (eczema over entire body) Neurological: Normal gait, Normal speech - Studies Laboratory Data (last 24 hrs) 04/12/18 14:00: Creatinine 0.90 04/12/18 14:00: WBC 23.0 H*, Hgb 14.7, Hct 43.5, Plt Count 392 04/12/18 14:00: Sodium 142, Potassium 4.0, BUN 21 H, Creatinine 1.00, Glucose 111 H, Total Bilirubin 0.7, AST 12 L, ALT 24, Alkaline Phosphatase 60, Lipase 68 L Assessment And Plan - Current Problems (Diagnosis) (1) Perforation of sigmoid colon due to diverticulitis Current Visit: Yes Status: Acute Plan: Diverticular Abscess - Gen: pain control is adequate at this time with dilaudid, did not require Q2 at night, but during day, did require Q2, I will give him single dose of 2mg dilaudid - Abd: will continue serial exams, I have discussed the possiblilty he will need emergent surgery and his condition, but he feels he has less pain and is improving somewhat, and was able to ambulate, his pain is predominantly in his back by his report due to his Rheumatoid Arthritis - ID: leukocytosis improving continue invanz 1 gram IV qday - FEN: continue IV hydration, electrolyte replacement protocol, continue NPO for now, will consider PICC line and TPN soon - prohylaxis: SCDs while in bed
[2018-04-13] MEDS: KETOROLAC 30 MG/ML INJ IV PRN (13:22)
--- NOTE | 2018-04-13 13:33 | PN ---
Date of Progress Note: 04/13/2018 Subjective: The patient is seen and examined. Chart reviewed and case discussed with RN and Dr. Renee. The patient complaining of significant back pain. Does have rheumatoid arthritis. His abdominal pain is somewhat the same as yesterday. Review of Systems: Negative except as above. Medications: List reviewed. Physical Examination: Vital Signs: Temperature 97.8, heart rate 75, blood pressure 131/75, respirations 18, O2 97% on room air. General: Awake, alert, oriented x3, in some mild distress, ill-appearing male. CV: S1, S2. No murmurs. Regular rate and rhythm. Peripheral pulses present. Respiratory: Moving air well bilaterally. No wheezing. No stridor. Gastrointestinal: Abdomen is mildly rigid. No distention. Bowel sounds hypoactive. Some voluntary guarding. No rebound tenderness. No signs of peritonitis. Extremities: No clubbing, cyanosis, edema. Neurologic: Nonfocal. Musculoskeletal: Point tenderness in the lumbar spine. Laboratory Data: Sodium 141, potassium 3.7, chloride 109, CO2 27, BUN 20, creatinine 0.9, glucose 81, calcium 8.3, phosphorus 8.6, magnesium 2.1. WBC 17.2, H and H 13 and 39.2, platelets 325, neutrophils 86%. No bands. Cultures , no culture specimens available. Assessment And Plan: A 47-year-old male with: 1. Sigmoid colon perforation secondary to acute diverticulitis with abscess. 2. Ankylosing spondylitis. 3. Rheumatoid arthritis. 4. Intermittent asthma. 5. Eczema. 6. Intractable lower back pain. 7. Gastrointestinal and deep venous thrombosis prophylaxis addressed. Plan: We will adjust pain medications and Toradol. Continue IV antibiotics. We will obtain blood cultures; however, yield will be low as the patient has already been on IV antibiotics. Continue pain medications. Appreciate Dr. Renee's input. We will keep n.p.o. for now. Medical management. No acute surgical intervention recommended by Dr. Renee at this time. SA/MODL Voice ID: [id number] Report ID: [id number] [facility] CENTERAntonieta
[2018-04-13] MEDS: ERTAPENEM NA 1 GM in NA CHLORIDE 0.9% 100 ML IVPB SCH (15:34)
--- NOTE | 2018-04-13 18:58 | RAD REPORT ---
EXAM DESCRIPTION: RAD - Lumbar Spine 3 Views - 04/13/2018 6:50 pm CLINICAL HISTORY: back pain FINDINGS: Mild to moderate scoliosis involves the thoracolumbar spine. No fracture or dislocation is seen. The bones are osteoporotic. Mild to moderate spondylosis involves lumbar spine mainly consisting of d isc space narrowing
[2018-04-13] MEDS: LATANOPROST OP SCH (20:10)
[2018-04-13] MEDS: NACHLORIDE 0.45% 1,000 ML IV SCH (20:34)
[2018-04-14] MEDS: D50W 25 GM/50 ML SYRINGE IV PRN
[2018-04-14] MEDS: NACHLORIDE 0.45% 1,000 ML IV SCH (01:23)
[2018-04-14] MEDS: ALBUTEROL 2.5 MG/3 ML NEB SOL NEB PRN (03:39)
[2018-04-14] MEDS: HYDROMORPHONE HCL 1 MG/ML INJ IV PRN (04:20)
[2018-04-14 05:10] LABS: Absolute Lymphocytes (CBC) 0.8 K/uL (0.7-4.9); Absolute Monocytes 1.3 K/uL (0.1-1.3); Absolute Neutrophil 10.8 K/uL (1.8-8.0); Basophils % 0.2 % (0-1.3); Eosinophils % 3.3 % (0-4.4); Hematocrit 38.3 % (39.6-49.0); Lymphocytes % 6.1 % (15.3-44.8); MCH 29.5 pg (27.0-35.0); MCV 89.5 fL (80-100); MPV 7.7 fL (7.6-11.3); Monocytes % 9.6 % (3.3-12.3); RBC Red Blood Cell Count 4.28 M/uL (4.33-5.43)
[2018-04-14 05:24] LABS: ALT/SGPT 19 U/L (12-78); AST/SGOT 13 U/L (15-37); Albumin 2.7 g/dL (3.4-5.0); Alkaline Phosphatase 54 U/L (45-117); BUN Blood Urea Nitrogen 18 mg/dL (7-18); Bicarbonate 26 mmol/L (21-32); Bilirubin Total 0.8 mg/dL (0.2-1.0); Glucose Level 77 mg/dL (74-106); Phosphorus 2.9 mg/dL (2.5-4.9); Potassium 3.7 mmol/L (3.5-5.1); Protein, Total 6.8 g/dL (6.4-8.2); Sodium Level 144 mmol/L (136-145)
[2018-04-14] MEDS: INSULIN -REGULAR HUMAN 50 UNIT/0.5 ML ML SQ SCH ×4 (06:00→18:00)
[2018-04-14] MEDS: ARFORMOTEROL TARTRATE 15 MCG/2 ML VIAL.NEB NEB SCH ×2 (07:53→19:55)
[2018-04-14] MEDS ORDERED: KCL 20 MEQ/100 mL IVPB 20 MEQ/100 ML BAG IV SCH (08:00)
[2018-04-14] MEDS: D5 0.45 NS 1,000 ML IV SCH ×3 (08:20→17:01)
[2018-04-14] MEDS: MONTELUKAST 10 MG TAB PO SCH (08:20)
[2018-04-14] MEDS: predniSONE 20 MG TAB PO SCH (08:21)
[2018-04-14] MEDS: TRIAMCINOLONE 0.1% CREAM 15GM TOP SCH ×2 (09:00→21:00)
[2018-04-14] MEDS: ERTAPENEM NA 1 GM in NA CHLORIDE 0.9% 100 ML IVPB SCH (17:01)
--- NOTE | 2018-04-14 18:06 | P.PN ---
Subjective Date of Service: 04/14/18 Primary Care Provider: None Chief Complaint: Abdominal pain perforated diverticulitis Subjective: Doing well (Patient doing slightly better. Patient without significant pain. Patient is ambulating.) Physical Examination - Vital Signs Temperature: 97.7 F Blood Pressure: 158/89 Pulse: 78 Respirations: 17 Pulse Ox (%): 96 - Physical Exam General: Alert, In no apparent distress, Oriented x3, Cooperative HEENT: Atraumatic Neck: Supple Respiratory: Clear to auscultation bilaterally, Normal air movement Cardiovascular: Normal pulses, Regular rate/rhythm Gastrointestinal: Hypoactive (Throughout), Non-distended, No masses, No rebound , No guarding, Tenderness (Less pain to the abdomen noted) Musculoskeletal: No erythema, No tenderness, No warmth Integumentary: No tenderness/swelling, No erythema, No warmth, No cyanosis Neurological: Normal speech, Normal strength at 5/5 x4 extr, Normal tone, Normal affect Lymphatics: No axilla or inguinal lymphadenopathy - Studies Medications List Reviewed: Yes Assessment & Plan Discharge Plan: Home Plan to discharge in: Greater than 2 days Physician Review Additional Text: Assessment: Diverticulitis with perforation Plan: Spoke with surgery. Will continue monitor patient closely. Surgery has advanced his diet to ice chips. Will continue monitor patient closely. Recommendation to increase ambulation. Patient may require TPN if his progress is slow. If the patient worsens patient may require surgical intervention. Will continue monitor closely. Time Spent Managing Pts Care (In Minutes): 55
[2018-04-14] MEDS: LATANOPROST OP SCH (21:00)
[2018-04-15] MEDS: D5 0.45 NS 1,000 ML IV SCH ×3 (00:31→21:05)
[2018-04-15 05:12] LABS: Absolute Lymphocytes (CBC) 0.8 K/uL (0.7-4.9); Absolute Monocytes 0.9 K/uL (0.1-1.3); Absolute Neutrophil 7.7 K/uL (1.8-8.0); Basophils % 0.5 % (0-1.3); Eosinophils % 4.5 % (0-4.4); Hematocrit 34.2 % (39.6-49.0); MCH 30.3 pg (27.0-35.0); MPV 7.7 fL (7.6-11.3); Monocytes % 8.9 % (3.3-12.3); RBC Red Blood Cell Count 3.93 M/uL (4.33-5.43)
[2018-04-15 05:30] LABS: ALT/SGPT 19 U/L (12-78); AST/SGOT 16 U/L (15-37); Albumin 2.3 g/dL (3.4-5.0); Alkaline Phosphatase 42 U/L (45-117); BUN Blood Urea Nitrogen 9 mg/dL (7-18); Bicarbonate 27 mmol/L (21-32); Bilirubin Total 0.5 mg/dL (0.2-1.0); Glucose Level 109 mg/dL (74-106); Phosphorus 3.1 mg/dL (2.5-4.9); Potassium 3.4 mmol/L (3.5-5.1); Protein, Total 6.1 g/dL (6.4-8.2); Sodium Level 144 mmol/L (136-145)
[2018-04-15] MEDS: INSULIN -REGULAR HUMAN 50 UNIT/0.5 ML ML SQ SCH ×4 (05:47→18:00)
[2018-04-15] MEDS: KCL 20 MEQ/100 mL IVPB 20 MEQ/100 ML BAG IV SCH ×2 (08:00→14:44)
[2018-04-15] MEDS: predniSONE 20 MG TAB PO SCH (10:14)
[2018-04-15] MEDS: MONTELUKAST 10 MG TAB PO SCH (10:14)
[2018-04-15] MEDS: TRIAMCINOLONE 0.1% CREAM 15GM TOP SCH ×2 (10:15→21:01)
[2018-04-15] MEDS: ARFORMOTEROL TARTRATE 15 MCG/2 ML VIAL.NEB NEB SCH ×2 (12:56→19:44)
--- NOTE | 2018-04-15 13:58 | P.PN ---
Subjective Date of Service: 04/15/18 Primary Care Provider: None Chief Complaint: Abdominal pain perforated diverticulitis Subjective: Improving (Patient tolerating ice chips. Pain improved. Patient ambulating.) Physical Examination - Vital Signs Temperature: 97.9 F Blood Pressure: 132/79 Pulse: 53 Respirations: 18 Pulse Ox (%): 97 - Physical Exam General: Alert, In no apparent distress, Oriented x3, Cooperative HEENT: Atraumatic Neck: Supple Respiratory: Clear to auscultation bilaterally, Normal air movement Cardiovascular: Normal pulses, Regular rate/rhythm Gastrointestinal: Normal bowel sounds, Soft and benign, Non-distended, No masses , No rebound, No guarding, Tenderness (Less pain to the abdomen noted.) Musculoskeletal: No erythema, No tenderness, No warmth Integumentary: No tenderness/swelling, No erythema, No warmth, No cyanosis Neurological: Normal speech, Normal strength at 5/5 x4 extr, Normal tone - Studies Medications List Reviewed: Yes Assessment & Plan - Problems (Diagnosis) (1) Perforation of sigmoid colon due to diverticulitis Onset Date: 04/14/18 Current Visit: Yes Status: Acute Plan: Patient is slowly improving. Diet to be advanced to clear liquid this morning. If tolerates diet then patient will likely have full liquid later tonight. Will continue with current antibiotic therapy. Case discussed with surgery. Anticipate discharge in the next 2-3 days. Discharge Plan: Home Plan to discharge in: 72 Hours Time Spent Managing Pts Care (In Minutes): 55
[2018-04-15] MEDS ORDERED: KCL 20 MEQ/100 mL IVPB 20 MEQ/100 ML BAG IV SCH (15:00)
[2018-04-15] MEDS: ERTAPENEM NA 1 GM in NA CHLORIDE 0.9% 100 ML IVPB SCH (17:20)
[2018-04-15] MEDS: ENOXAPARIN 40 MG/0.4 ML SQ SCH (17:22)
[2018-04-15] MEDS: LATANOPROST OP SCH (21:00)
[2018-04-16] MEDS: KETOROLAC 30 MG/ML INJ IV PRN (00:47)
[2018-04-16] MEDS: D5 0.45 NS 1,000 ML IV SCH ×2 (00:49→06:23)
[2018-04-16] MEDS ORDERED: KCL 20 MEQ/100 mL IVPB 20 MEQ/100 ML BAG IV SCH ×2 (01:07→08:00)
[2018-04-16 05:19] LABS: Absolute Monocytes 0.8 K/uL (0.1-1.3); Absolute Neutrophil 5.6 K/uL (1.8-8.0); Basophils % 0.6 % (0-1.3); Eosinophils % 4.5 % (0-4.4); Hematocrit 34.6 % (39.6-49.0); Lymphocytes % 12.8 % (15.3-44.8); MCH 29.5 pg (27.0-35.0); MCV 87.8 fL (80-100); MPV 7.5 fL (7.6-11.3); Monocytes % 10.1 % (3.3-12.3); RBC Red Blood Cell Count 3.94 M/uL (4.33-5.43)
[2018-04-16 05:51] LABS: ALT/SGPT 18 U/L (12-78); AST/SGOT 12 U/L (15-37); Albumin 2.3 g/dL (3.4-5.0); Alkaline Phosphatase 39 U/L (45-117); BUN Blood Urea Nitrogen 6 mg/dL (7-18); Bicarbonate 25 mmol/L (21-32); Bilirubin Total 0.4 mg/dL (0.2-1.0); Glucose Level 91 mg/dL (74-106); Magnesium 1.8 mg/dL (1.8-2.4); Phosphorus 3.3 mg/dL (2.5-4.9); Potassium 3.5 mmol/L (3.5-5.1); Sodium Level 143 mmol/L (136-145)
[2018-04-16] MEDS ORDERED: MAGNESIUM SULFATE 1 gm IVPB 1 GM/100 ML BAG IV ONE (07:00)
[2018-04-16] MEDS: ARFORMOTEROL TARTRATE 15 MCG/2 ML VIAL.NEB NEB SCH ×2 (07:50→20:07)
--- NOTE | 2018-04-16 08:44 | P.PN ---
Subjective Date of Service: 04/16/18 Primary Care Provider: Dr. Dolan Chief Complaint: Abdominal pain perforated diverticulitis Subjective: Other (Patient continues to improve. Less abdominal pain noted. Patient tolerating clear liquid and full liquid diet. Patient is passing gas and stool.) Physical Examination - Vital Signs Temperature: 98.4 F Blood Pressure: 128/70 Pulse: 56 Respirations: 18 Pulse Ox (%): 94 - Physical Exam General: Alert, In no apparent distress, Oriented x3, Cooperative HEENT: Atraumatic Neck: Supple Respiratory: Clear to auscultation bilaterally, Normal air movement Cardiovascular: Normal pulses, Regular rate/rhythm Gastrointestinal: Normal bowel sounds, Soft and benign, Non-distended, No tenderness, No masses, No rebound, No guarding Musculoskeletal: No erythema, No tenderness, No warmth Integumentary: No erythema, No warmth, No cyanosis Neurological: Normal speech, Normal strength at 5/5 x4 extr, Normal tone, Normal affect - Studies Medications List Reviewed: Yes Assessment & Plan - Problems (Diagnosis) (1) Perforation of sigmoid colon due to diverticulitis Onset Date: 04/14/18 Current Visit: Yes Status: Acute Plan: Patient continues to improve. Patient has tolerated clear liquid and full liquid diet. Await further recommendations from surgery. Anticipate that surgery will advance his diet to a soft diet. Encourage ambulation. If able to tolerate diet anticipate discharge tomorrow. Will discuss with surgery. Discharge Plan: Home Plan to discharge in: 24 Hours Time Spent Managing Pts Care (In Minutes): 55
[2018-04-16] MEDS ORDERED: D5 0.45 NS 1,000 ML IV SCH (09:00)
[2018-04-16] MEDS: levoFLOXacin 500 MG TAB PO SCH (09:42)
[2018-04-16] MEDS: MONTELUKAST 10 MG TAB PO SCH (09:42)
[2018-04-16] MEDS: TRIAMCINOLONE 0.1% CREAM 15GM TOP SCH ×2 (09:48→22:21)
[2018-04-16] MEDS: metroNIDAZOLE 500 MG TABLET PO SCH ×3 (13:00→23:29)
[2018-04-16] MEDS: ENOXAPARIN 40 MG/0.4 ML SQ SCH (17:32)
[2018-04-16] MEDS: LATANOPROST OP SCH (21:00)
[2018-04-16] MEDS ORDERED: DIPHENHYDRAMINE 25 MG TAB/CAP PO ONE (23:16)
[2018-04-17 06:01] LABS: Absolute Monocytes 0.9 K/uL (0.1-1.3); Absolute Neutrophil 6.1 K/uL (1.8-8.0); Basophils % 0.8 % (0-1.3); Eosinophils % 7.5 % (0-4.4); Hematocrit 36.5 % (39.6-49.0); Lymphocytes % 11.3 % (15.3-44.8); MCV 86.4 fL (80-100); MPV 7.4 fL (7.6-11.3); Monocytes % 9.9 % (3.3-12.3); RBC Red Blood Cell Count 4.23 M/uL (4.33-5.43)
[2018-04-17] MEDS: metroNIDAZOLE 500 MG TABLET PO SCH ×2 (06:12→12:01)
[2018-04-17 06:28] LABS: ALT/SGPT 21 U/L (12-78); AST/SGOT 12 U/L (15-37); Albumin 2.5 g/dL (3.4-5.0); Alkaline Phosphatase 44 U/L (45-117); BUN Blood Urea Nitrogen 11 mg/dL (7-18); Bicarbonate 27 mmol/L (21-32); Bilirubin Total 0.3 mg/dL (0.2-1.0); Glucose Level 80 mg/dL (74-106); Phosphorus 3.9 mg/dL (2.5-4.9); Potassium 3.7 mmol/L (3.5-5.1); Protein, Total 6.2 g/dL (6.4-8.2); Sodium Level 144 mmol/L (136-145)
[2018-04-17] MEDS ORDERED: POTASSIUM 25 MEQ EFFERV TAB PO ONE (07:00)
[2018-04-17] MEDS: ARFORMOTEROL TARTRATE 15 MCG/2 ML VIAL.NEB NEB SCH (07:35)
--- NOTE | 2018-04-17 08:27 | P.DS ---
Admission Date: 04/12/18 Discharge Date: 04/17/18 Primary Care Provider: Dr. Dolan Disposition: ROUTINE DISCHARGE Discharge Condition: GOOD Reason for Admission: Abdominal pain perforated diverticulitis Consultations: Surgery-Dr. Renee Procedures: CT scan: COMPARISON: Abdomen Pelvis W Contrast dated 01/06/2018 TECHNIQUE: Computed axial tomography of the abdomen pelvis was obtained. 100 cc Isovue-300 was administered intravenously. Oral contrast was not requested which limits evaluation of bowel. All CT scans are performed using dose optimization technique as appropriate and may include automated exposure control or mA/KV adjustment according to patient size. FINDINGS: The liver, spleen, pancreas, adrenal and kidneys appear unremarkable. The wall of the sigmoid colon is thickened. Diverticula are present. Stranding is seen within the adjacent fat. A 2 centimeter abscess lies to the left of the sigmoid colon. A small to moderate amount of pneumoperitoneum is present within the abdomen and upper pelvis. Fluid-filled small-bowel loops are upper limits normal caliber. Small amount ascites is present. A small umbilical hernia is present. Small bilateral hernias are present. The prostate gland is mildly to moderately enlarged IMPRESSION: Sigmoid diverticulitis with 2 centimeter abscess. Small to moderate amount of pneumoperitoneum. This probably indicates a perforated viscus. The site is not clearly delineated. However given the diverticulitis a perforated diverticulum is considered most likely. Medical problem list: Abdominal pain secondary to acute sigmoid diverticulitis with perforation. CT scan showing 2 cm abscess lies to the left of the sigmoid colon. Small to moderate amount of pneumoperitoneum present. Likely perforated viscus noted. Patient with prior history of diverticulitis, treated twice with antibiotic therapy over the last year. Mild anemia Bilateral small hernia Small umbilical hernia CT scan shows mild to moderate enlargement of prostate Back pain with noted with osteoporotic changes, spondylosis and scoliosis to the lumbar spine. History of eczema, with frequent use of steroids - Problems (1) Perforation of sigmoid colon due to diverticulitis Onset Date: 04/14/18 Current Visit: Yes Status: Acute Brief History of Present Illness: 47-year-old male presented emergency room with abdominal pain. Patient with history of diverticulitis in the past. He had been treated twice over the past year. Patient also with history of severe eczema. Patient was evaluated in the emergency room. CT scan revealed sigmoid diverticulitis with 2 cm abscess. Small to moderate amount of pneumoperitoneum noted. This likely indicated a perforated viscus. Other findings included bilateral inguinal hernia, small umbilical hernia and mild to moderately enlarged prostate. Patient was admitted for further evaluation. Surgery consulted. Hospital Course: Patient presented with abdominal pain. Patient with history of diverticulitis. He had been treated for acute diverticulitis twice over the past year. CT scan revealed sigmoid diverticulitis with 2 cm abscess, small to moderate amount of pneumoperitoneum likely indicating perforated viscus. Patient was evaluated by surgery. No surgical intervention was required. Patient treated with nonsurgical treatment. This included IV antibiotic therapy. His oral intake was slowly advanced. Patient tolerated this well. At discharge patient will continue with Levaquin 500 mg daily and Flagyl 500 mg 4 times a day for 10 days. Case discussed at length with surgery. Patient is to be monitored closely at home. If the patient develops increasing abdominal pain, distention , nausea or vomiting. He is to return to the hospital immediately for evaluation. Patient will not be given any pain medication as his pain will need to be monitored closely. This will be addressed in detail with the patient. Patient will need to follow up with surgery within 1-2 weeks to follow up this hospitalization and to further address. At discharge patient will continue with a low residue diet. Work restrictions will be provided by surgery. No heavy lifting greater than 10 lb is recommended. Patient has history of severe eczema. He has been treated in the past with multiple regimen. At discharge he will continue with Singulair. Patient has used steroids often on for this. He has seen Dermatology. Recommendation is for the patient to limit use of steroids in the future. Recommendation is to follow up with Dermatology and possibly Rheumatology to further evaluate. Patient had some back pain during the course of his stay. X-ray revealed some osteoporotic changes, spondylosis and scoliosis to the lumbar spine. As recommended above, patient will need to limit his prednisone use in the future for his eczema as this may exacerbate osteoporotic changes. Patient may need a follow up with pain management in the future to further evaluate and assess. Patient may also benefit with orthopedic consultation in the future. CT scan also revealed bilateral inguinal hernia and small umbilical hernia. This can be further monitored and addressed by surgery. CT scan also revealed mild to moderate enlarged prostate. Recommendation is for the patient to follow up with his PCP to further address. Patient will need PSA. Patient may require urological evaluation and consultation as an outpatient. Vital Signs/Physical Exam: Temp Pulse Resp BP Pulse Ox 98.2 F 65 16 121/67 93 04/17/18 04:00 04/17/18 04:00 04/17/18 04:00 04/17/18 04:00 04/17/18 04:00 General: Alert, In no apparent distress, Oriented x3, Cooperative HEENT: Atraumatic Neck: Supple Respiratory: Clear to auscultation bilaterally, Normal air movement Cardiovascular: Normal pulses, Regular rate/rhythm Gastrointestinal: Normal bowel sounds, Soft and benign, Non-distended, No tenderness, No masses, No rebound, No guarding Musculoskeletal: No erythema, No tenderness, No warmth Integumentary: No tenderness/swelling, No erythema, No warmth, No cyanosis Neurological: Normal speech, Normal strength at 5/5 x4 extr, Normal tone, Normal affect Laboratory Data at Discharge: WBC 8.6 K/uL (4.3-10.9) 04/17/18 05:17 Hgb 12.7 g/dL (13.6-17.9) L 04/17/18 05:17 Hct 36.5 % (39.6-49.0) L 04/17/18 05:17 Plt Count 379 K/uL (152-406) 04/17/18 05:17 PT 16.1 SECONDS (9.5-12.5) H 04/13/18 04:45 INR 1.36 04/13/18 04:45 Sodium 144 mmol/L (136-145) 04/17/18 05:17 Potassium 3.7 mmol/L (3.5-5.1) 04/17/18 05:17 BUN 11 mg/dL (7-18) 04/17/18 05:17 Creatinine 0.80 mg/dL (0.55-1.3) 04/17/18 05:17 Glucose 80 mg/dL (74-106) 04/17/18 05:17 Phosphorus 3.9 mg/dL (2.5-4.9) 04/17/18 05:17 Magnesium 2.0 mg/dL (1.8-2.4) 04/17/18 05:17 Total Bilirubin 0.3 mg/dL (0.2-1.0) 04/17/18 05:17 AST 12 U/L (15-37) L 04/17/18 05:17 ALT 21 U/L (12-78) 04/17/18 05:17 Alkaline Phosphatase 44 U/L (45-117) L 04/17/18 05:17 Lipase 68 U/L (73-393) L 04/12/18 14:00 Home Medications: Albuterol Sulfate [Proair Hfa] 90 mcg IH PRN PRN 04/12/18 Celecoxib [Celebrex] 200 mg PO DAILY 04/12/18 Latanoprost/Pf [Latanoprost 0.005% Eye Drop] 7.5 ml OP BEDTIME 04/12/18 Montelukast [Singulair*] 10 mg PO DAILY 04/12/18 Triamcinolone 0.1% Crm [Kenalog 0.1% Cream*] 15 appl TP BID 04/12/18 levoFLOXacin [Levaquin*] 500 mg PO DAILY #10 tab 04/17/18 metroNIDAZOLE [Flagyl*] 500 mg PO Q6HR #40 tablet 04/17/18 New Medications: levoFLOXacin [Levaquin*] 500 mg PO DAILY #10 tab metroNIDAZOLE [Flagyl*] 500 mg PO Q6HR #40 tablet Patient Discharge Instructions: 1. Patient will need a follow up with his PCP in 1 week to follow up this hospitalization. 2. Patient presented with abdominal pain. Patient with history of diverticulitis. He had been treated for acute diverticulitis twice over the past year. CT scan revealed sigmoid diverticulitis with 2 cm abscess, small to moderate amount of pneumoperitoneum likely indicating perforated viscus. Patient was evaluated by surgery. No surgical intervention was required. Patient treated with nonsurgical treatment. This included IV antibiotic therapy and fluids. His oral intake was slowly advanced. Patient tolerated this well. At discharge patient will continue with Levaquin 500 mg daily and Flagyl 500 mg 4 times a day for 10 days. Case discussed at length with surgery. Patient is to be monitored closely at home. If the patient develops increasing abdominal pain, distention , nausea or vomiting, he is to return to the hospital immediately for evaluation. Patient will not be given any pain medication as his pain will need to be monitored closely. This will be addressed in detail with the patient. Patient will need to follow up with surgery within 1-2 weeks to follow up this hospitalization and to further address. At discharge patient will continue with a low residue diet. No heavy lifting, pushing or pulling is recommended. Work restrictions will be provided by surgery. 3. Patient has history of severe eczema. He has been treated in the past with multiple regimens. At discharge he will continue with Singulair. Patient has used steroids often on for this. He has seen Dermatology. Recommendation is for the patient to limit use of steroids in the future as this may exacerbate other further medical issues. Recommendation is to follow up with Dermatology and possibly Rheumatology to further evaluate. 4. Patient had some back pain during the course of his stay. X-ray revealed some osteoporotic changes, spondylosis and scoliosis to the lumbar spine. As recommended above, patient will need to limit his prednisone use in the future for his eczema as this may exacerbate osteoporotic changes. Patient may need a follow up with pain management in the future to further evaluate and assess. Patient may also benefit with orthopedic consultation in the future. 5. CT scan also revealed bilateral inguinal hernia and small umbilical hernia. This can be further monitored and addressed by surgery. 6. CT scan also revealed mild to moderate enlarged prostate. Recommendation is for the patient to follow up with his PCP to further address. Patient will need PSA. Patient may require urological evaluation and consultation as an outpatient to further address. Diet: Low residue diet Activity: No lifting more than 10 lbs Time spent managing pt's care (in minutes): 55
[2018-04-17] MEDS: levoFLOXacin 500 MG TAB PO SCH (09:30)
[2018-04-17] MEDS: TRIAMCINOLONE 0.1% CREAM 15GM TOP SCH (09:31)
[2018-04-17 09:50] VITALS: O2SAT 96
[2018-04-17] MEDS: MONTELUKAST 10 MG TAB PO SCH (09:55)
[2018-04-17 14:27] VITALS: BP 131/77; TEMP 97.1
== END 2018-04-17 14:30 | disposition home or self-care (01) | DRG 392 ==
LOC: ER 13:10 → SUPCPDRO 13:10 → ERHOLD 17:19 → 2ND 18:00
PROVIDERS: ADMIT Internal Medicine Sleep Medicine; ATTEND Family Medicine
DX: K57.20 Diverticulitis of large intestine with perforation and abscess without bleeding (principal); D64.9 Anemia, unspecified; K42.9 Umbilical hernia without obstruction or gangrene; N40.0 Benign prostatic hyperplasia without lower urinary tract symptoms; M81.0 Age-related osteoporosis without current pathological fracture; M47.816 Spondylosis without myelopathy or radiculopathy, lumbar region; M41.9 Scoliosis, unspecified; L30.9 Dermatitis, unspecified; K40.20 Bilateral inguinal hernia, without obstruction or gangrene, not specified as recurrent; M06.9 Rheumatoid arthritis, unspecified; M45.9 Ankylosing spondylitis of unspecified sites in spine; J45.20 Mild intermittent asthma, uncomplicated; F17.220 Nicotine dependence, chewing tobacco, uncomplicated
CPT/HCPCS: 36415; 72100; 74177; 80048; 80053; 80076; 81003; 81015; 82962; 83690; 83735; 84100; 84132; 85025; 85610; 94760; 96361; 96365; 96367; 96375; 99285; J1170; J1335; J1650; J2405; J2543; J3475; J7030; J7512; J7605

== ENCOUNTER 2018-06-12 07:10 | Day surgery (SDC) | payer BC ==
[2018-06-12] MEDS ORDERED: Ringers Lactate 1,000 ML IV ONE (07:56)
[2018-06-12] MEDS ORDERED: LIDOCAINE 1% MPF 5 ML VIAL ONE (09:36)
[2018-06-12] MEDS ORDERED: PROPOFOL 200 MG/20 ML VIAL IV ONE (09:36)
--- NOTE | 2018-06-12 10:09 | ENDO RPT ---
[address], [address] COLONOSCOPY PROCEDURE REPORT EXAM DATE: 06/12/2018 PATIENT NAME: Theodore Harrell MR #: [id number] BIRTHDATE: 1970 ATTENDING: Jc Renee DR STATUS: outpatient INSURANCE PROCESSING CLERK: Berenice Clark RN and Rich Avendano INDICATIONS: The patient is a 47 yr old Male here for a colonoscopy due to diverticulitis PROCEDURE PERFORMED: Colonoscopy with biopsy - cold polypectomy MEDICATIONS: Per Anesthesia. ESTIMATED BLOOD LOSS: None CONSENT: The patient understands the risks and benefits of the procedure and understands that these risks include, but are not limited to: sedation, allergic reaction, infection, perforation and/or bleeding. Alternative means of evaluation and treatment include, among others: physical exam, x-rays, and/or surgical intervention. The patient elects to proceed with this endoscopic procedure. DESCRIPTION OF PROCEDURE: During intra-op preparation period all mechanical medical equipment was checked for proper function. Hand hygiene and appropriate measures for infection prevention was taken. Procedure, possible complications, alternatives including, but not limited to possibility of bleeding, perforation, tear, infection, sepsis, need for surgery, need for blood transfusion, were explained to the patient. After the risks, benefits and alternatives of the procedure were thoroughly explained, Informed consent was verified, confirmed and timeout was successfully executed by the treatment team. The patient was placed in the left lateral position. A digital rectal exam was performed and revealed an enlarged prostate and A digital rectal exam was performed and revealed increased firmness of the prostate. After appropriate level of anesthesia, the scope was passed. The EC-[id number] ([id number]) endoscope was introduced through the anus and advanced to the cecum, which was identified by both the appendix and ileocecal valve. The quality of the prep was fair. The instrument was then slowly withdrawn as the colon was fully examined. Scope withdrawal time was 10 minutes. COLON FINDINGS: An innumerable number of medium sized large and small polypoid shaped and smooth sessile polyps with friable surfaces were found throughout the entire examined colon. A polypectomy was performed using snare cautery on 6 financial services representative specimen of the larger variety. The resection was complete, the polyp tissue was completely retrieved and sent to histology. Moderate diverticulosis was noted throughout the entire examined colon. No bleeding was noted from the diverticulosis. Retroflexed views revealed no abnormalities. The scope was then completely withdrawn from the patient and the procedure terminated. ADVERSE EVENTS: There were no complications. IMPRESSIONS: Innumerable number of medium sized large small sessile polyps were found throughout the entire examined colon; polypectomy was performed using snare cautery RECOMMENDATIONS: 1. avoid NSAIDS for 2 weeks 2. await biopsy results 3. follow-up: office 2 week(s) 4. follow-up: referring MD 1 week(s) - Genetics Testing for possible polyposis syndrome 5. low fiber / diverticular diet RECALL: Return in 3 month(s) for Colonoscopy, pending biopsy results. pending biopsy results Jc Renee DR eSigned: Jc Renee DR 06/12/2018 10:08 AM cc: CPT CODES: ICD9 CODES: PATIENT NAME: Theodore Harrell MR#: [id number]
[2018-06-12 10:13] VITALS: TEMP 97.5
[2018-06-12 10:33] VITALS: BP 126/83; O2SAT 100
== END 2018-06-12 10:44 | disposition home or self-care (01) ==
LOC: OR 07:10
PROVIDERS: ATTEND Surgery
PROC: 0DBE8ZX Excision of Large Intestine, Via Natural or Artificial Opening Endoscopic, Diagnostic (ICD-10-PCS; principal; 2018-06-12 08:30)
DX: K57.92 Diverticulitis of intestine, part unspecified, without perforation or abscess without bleeding (principal); K63.5 Polyp of colon; K21.9 Gastro-esophageal reflux disease without esophagitis; J45.909 Unspecified asthma, uncomplicated; M06.9 Rheumatoid arthritis, unspecified
CPT/HCPCS: 88305; J2704

== ENCOUNTER 2018-07-01 21:05 | Inpatient (IN) | payer BC ==
[2018-07-01 21:41] LABS: Absolute Monocytes 1.1 K/uL (0.1-1.3); Absolute Neutrophil 13.6 K/uL (1.8-8.0); Basophils % 0.6 % (0-1.3); Hematocrit 39.7 % (39.6-49.0); Lymphocytes % 6.3 % (15.3-44.8); MCH 28.9 pg (27.0-35.0); MCV 87.1 fL (80-100); MPV 7.7 fL (7.6-11.3); Monocytes % 6.8 % (3.3-12.3); RBC Red Blood Cell Count 4.55 M/uL (4.33-5.43)
[2018-07-01 22:08] LABS: Blood Morphology Comment NOT SEEN (NOT SEEN); Platelet Estimate ADEQ
[2018-07-01 22:12] LABS: ALT/SGPT 37 U/L (12-78); AST/SGOT 20 U/L (15-37); Albumin 3.7 g/dL (3.4-5.0); Alkaline Phosphatase 60 U/L (45-117); BUN Blood Urea Nitrogen 19 mg/dL (7-18); Bicarbonate 29 mmol/L (21-32); Bilirubin Direct 0.4 mg/dL (0-0.2); Bilirubin Total 1.6 mg/dL (0.2-1.0); Glucose Level 74 mg/dL (74-106); Lipase 93 U/L (73-393); Potassium 3.8 mmol/L (3.5-5.1); Protein, Total 7.3 g/dL (6.4-8.2); Sodium Level 140 mmol/L (136-145)
--- NOTE | 2018-07-01 23:36 | EDPHYS ---
Physician Documentation [facility] Name: Theodore Harrell Age: 47 yrs Sex: Male : 1970 Arrival Date: 07/01/2018 Time: 21:07 Bed 14 Private MD: ED Physician Angel Luis Law HPI: 07/01 21:40 This 47 yrs old Male presents to ER via Unassigned with complaints of tw4 Abdominal Pain. 21:40 The patient presents with abdominal pain. Onset: The symptoms/episode began/occurred tw4 today. The symptoms do not radiate. Associated signs and symptoms: 2 month(s) ago, and became worse today, none. The symptoms are described as sharp. Modifying factors: The symptoms are alleviated by nothing, the symptoms are aggravated by nothing. The patient has not experienced similar symptoms in the past. Historical: - Allergies: 21:39 No Known Allergies; jb4 - Home Meds: 21:39 Advair Diskus Inhl 1 puff 2 times per day [Active]; celecoxib 100 mg Oral cap 2 caps jb4 once daily [Active]; prednisone 20 mg Oral tab once daily [Active]; proair as needed [Active]; Singulair Oral 1 tab once daily [Active]; - PMHx: 21:39 Ankylosing Spondylitis; Arthritis; Asthma; Diverticulitis; eczema; jb4 - PSHx: 21:39 cataract; elbow; jb4 - Immunization history:: Adult Immunizations up to date. - Social history:: Smoking status: Patient/guardian denies using tobacco, Patient uses alcohol, admits to "couple of beers" a day. - Ebola Screening: : No symptoms or risks identified at this time. ROS: 21:40 Constitutional: Negative for fever, chills, and weight loss, Eyes: Negative for injury, tw4 pain, redness, and discharge, Cardiovascular: Negative for chest pain, palpitations, and edema, Respiratory: Negative for shortness of breath, cough, wheezing, and pleuritic chest pain. 21:40 Back: Negative for injury and pain, MS/Extremity: Negative for injury and deformity, Skin: Negative for injury, rash, and discoloration, Neuro: Negative for headache, weakness, numbness, tingling, and seizure. 21:40 Abdomen/GI: Positive for abdominal pain, abdominal cramps, abdominal distension, Negative for nausea and vomiting, nausea, vomiting, and diarrhea, nausea, vomiting, diarrhea, black/tarry stool, rectal pain. Exam: 21:40 Constitutional: This is a well developed, well nourished patient who is awake, alert, tw4 and in no acute distress. Head/Face: Normocephalic, atraumatic. Eyes: Pupils equal round and reactive to light, extra-ocular motions intact. Lids and lashes normal. Conjunctiva and sclera are non-icteric and not injected. Cornea within normal limits. Periorbital areas with no swelling, redness, or edema. Cardiovascular: Regular rate and rhythm with a normal S1 and S2. No gallops, murmurs, or rubs. Normal PMI, no JVD. No pulse deficits. Respiratory: Lungs have equal breath sounds bilaterally, clear to auscultation and percussion. No rales, rhonchi or wheezes noted. No increased work of breathing, no retractions or nasal flaring. Abdomen/GI: Soft, non-tender, with normal bowel sounds. No distension or tympany. No guarding or rebound. No evidence of tenderness throughout. Back: No spinal tenderness. No costovertebral tenderness. Full range of motion. MS/ Extremity: Pulses equal, no cyanosis. Neurovascular intact. Full, normal range of motion. Neuro: Awake and alert, GCS 15, oriented to person, place, time, and situation. Cranial nerves II-XII grossly intact. Motor strength 5/5 in all extremities. Sensory grossly intact. Cerebellar exam normal. Normal gait. Vital Signs: 21:36 BP 136 / 88; Pulse 70; Resp 18; Temp 98.6(O); Pulse Ox 100% on R/A; Weight 72.57 kg jb4 (R); Height 5 ft. 10 in. (177.80 cm) (R); Pain 5/10; 22:47 BP 128 / 89; Pulse 60; Resp 16; Pulse Ox 100% on R/A; jb4 23:04 BP 121 / 83; Pulse 78; Resp 16; Pulse Ox 96% on R/A; mt 07/02 00:53 BP 116 / 71; Pulse 84; Resp 16; Pulse Ox 96% on R/A; mt 01:30 BP 112 / 68; Pulse 87; Resp 16; Pulse Ox 93% on R/A; jb4 07/01 21:36 Body Mass Index 22.96 (72.57 kg, 177.80 cm) jb4 MDM: 07/01 21:16 Patient medically screened. tw4 07/02 01:15 Differential diagnosis: cholecystitis, Cholelithiasis. Data reviewed: vital signs, tw4 nurses notes. Data interpreted: Pulse oximetry: Interpretation:. Counseling: I had a detailed discussion with the patient and/or guardian regarding: the historical points, exam findings, and any diagnostic results supporting the discharge/admit diagnosis. Medication response: morphine relieved the patient's pain. Symptoms have resolved, Zofran relieved the patient's nausea. Physician consultation: Jc Renee MD regarding admission, patient's condition, need to evaluate the patient as soon as possible, and will see patient in inpatient room. 07/01 21:22 Order name: Basic Metabolic Panel; Complete Time: 23:28 tw 07/01 23:28 Interpretation: Normal except: BUN 19. tw 07/01 21:22 Order name: CBC with Diff; Complete Time: 23:22 tw4 07/01 21:22 Order name: Hepatic Function tw 07/01 21:22 Order name: Lipase tw 07/01 22:07 Order name: Manual Differential EDMS 07/01 21:39 Order name: CT Abd/Pelvis - W/Contrast tw 07/02 01:00 Order name: Basic Metabolic Panel EDVT 07/02 01:00 Order name: Basic Metabolic Panel EDVT 07/02 01:00 Order name: CBC with Automated Diff EDMS 07/02 01:00 Order name: CBC with Automated Diff EDVT 07/01 21:22 Order name: IV Saline Lock; Complete Time: 21:27 tw4 07/01 21:22 Order name: Labs collected and sent; Complete Time: 21:27 tw4 07/02 01:00 Order name: NPO EDMS 07/02 01:00 Order name: Respiratory Therapy Consult EDMS Administered Medications: 00:33 Drug: Flagyl 500 mg Volume: 100 ml; Route: IVPB; Rate: 200 ml/hr; Infused Over: 30 jb4 mins; Site: right antecubital; 01:05 Follow up: Response: No adverse reaction; IV Status: Completed infusion [facility] 00:33 Drug: LevaQUIN 500 mg Volume: 100 ml; Route: IVPB; Infused Over: 60 mins; Site: right jb4 antecubital; 01:40 Follow up: Response: No adverse reaction; IV Status: Completed infusion 4 01:08 Drug: Zofran 4 mg Route: IVP; Site: right antecubital; jb4 01:50 Follow up: Response: No adverse reaction; Nausea is decreased jb4 01:10 Drug: morphine 4 mg Route: IVP; Site: right antecubital; 4 01:50 Follow up: Response: No adverse reaction; Pain is decreased [facility] Disposition: 07/01/18 23:35 Hospitalization ordered by cJ Renee for Inpatient Admission. Preliminary diagnosis is Acute appendicitis with generalized peritonitis. - Bed requested for Telemetry/MedSurg (Inpatient). - Status is Inpatient Admission. jb4 - Condition is Stable. - Problem is new. - Symptoms have improved. UTI on Admission? No Signatures: Dispatcher [employer] EDVT Suhail Streeter RN RN jb4 Angel Luis Law MD MD tw4 Xochilt Ojeda mw2 Corrections: (The following items were deleted from the chart) 07/01 22:14 21:26 Creatinine for Radiology+C.LAB.BRZ ordered. [facility] 07/02 01:10 07/01 23:35 Hospitalization Ordered by Jc Renee MD for Inpatient Admission. mw2 Preliminary diagnosis is Acute appendicitis with generalized peritonitis. Bed requested for Telemetry/MedSurg (Inpatient). Status is Inpatient Admission. Condition is Stable. Problem is new. Symptoms have improved. UTI on Admission? No. tw4 07/02 01:54 01:10 07/01/2018 23:35 Hospitalization Ordered by Jc Renee MD for Inpatient jb4 Admission. Preliminary diagnosis is Acute appendicitis with generalized peritonitis. Bed requested for Telemetry/MedSurg (Inpatient). Status is Inpatient Admission. Condition is Stable. Problem is new. Symptoms have improved. UTI on Admission? No. mw2
--- NOTE | 2018-07-01 23:36 | ER ---
Nurse's Notes [facility] Name: Theodore Harrell Age: 47 yrs Sex: Male : 1970 Arrival Date: 07/01/2018 Time: 21:07 Bed 14 Private MD: Diagnosis: Acute appendicitis with generalized peritonitis Presentation: 07/01 21:40 Presenting complaint: Patient states: I was at work today and around noon I started jb4 having severe abdominal pain. I was here in April for a perforation which I was admitted for and did not require surgery. I was pain free up until today. Transition of care: patient was not received from another setting of care. Onset of symptoms was July 01, 2018. Risk Assessment: Do you want to hurt yourself or someone else? Patient reports no desire to harm self or others. Initial Sepsis Screen: Does the patient meet any 2 criteria? No. Patient's initial sepsis screen is negative. Does the patient have a suspected source of infection? No. Patient's initial sepsis screen is negative. Care prior to arrival: None. 21:40 Method Of Arrival: Ambulatory jb4 21:40 Acuity: ROULA 3 jb4 Historical: - Allergies: 21:39 No Known Allergies; jb4 - Home Meds: 21:39 Advair Diskus Inhl 1 puff 2 times per day [Active]; celecoxib 100 mg Oral cap 2 caps jb4 once daily [Active]; prednisone 20 mg Oral tab once daily [Active]; proair as needed [Active]; Singulair Oral 1 tab once daily [Active]; - PMHx: 21:39 Ankylosing Spondylitis; Arthritis; Asthma; Diverticulitis; eczema; jb4 - PSHx: 21:39 cataract; elbow; jb4 - Immunization history:: Adult Immunizations up to date. - Social history:: Smoking status: Patient/guardian denies using tobacco, Patient uses alcohol, admits to "couple of beers" a day. - Ebola Screening: : No symptoms or risks identified at this time. Screenin:40 Abuse screen: Denies threats or abuse. Nutritional screening: No deficits noted. jb4 Tuberculosis screening: No symptoms or risk factors identified. 21:40 Fall Risk None identified. jb4 Assessment: 21:40 General: Appears in no apparent distress. uncomfortable, Behavior is calm, cooperative, jb4 appropriate for age. Pain: Complains of pain in abdomen Pain does not radiate. Pain currently is 5 out of 10 on a pain scale. Quality of pain is described as crampy, Pain began noon Is intermittent. Neuro: Level of Consciousness is awake, alert, obeys commands, Oriented to person, place, time, situation. Cardiovascular: Patient's skin is warm and dry. Respiratory: Airway is patent Respiratory effort is even, unlabored, Respiratory pattern is regular, symmetrical. GI: Bowel sounds present X 4 quads. Abd is soft X 4 quads Abdomen is tender to palpation X 4 quads. : No signs and/or symptoms were reported regarding the genitourinary system. EENT: No signs and/or symptoms were reported regarding the EENT system. Derm: Skin is intact, Skin is pink, warm \\T\\ dry. Musculoskeletal: Circulation, motion, and sensation intact. 22:47 Reassessment: Patient appears in no apparent distress at this time. Patient and/or jb4 family updated on plan of care and expected duration. Pain level reassessed. Patient is alert, oriented x 3, equal unlabored respirations, skin warm/dry/pink. 07/02 00:00 Reassessment: Patient appears in no apparent distress at this time. Patient and/or jb4 family updated on plan of care and expected duration. Pain level reassessed. Patient is alert, oriented x 3, equal unlabored respirations, skin warm/dry/pink. 01:00 Reassessment: Patient appears in no apparent distress at this time. Patient and/or jb4 family updated on plan of care and expected duration. Pain level reassessed. Patient is alert, oriented x 3, equal unlabored respirations, skin warm/dry/pink. 01:48 Reassessment: Patient appears in no apparent distress at this time. Patient and/or jb4 family updated on plan of care and expected duration. Pain level reassessed. Patient is alert, oriented x 3, equal unlabored respirations, skin warm/dry/pink. Patient states feeling better. Vital Signs: 07/01 21:36 BP 136 / 88; Pulse 70; Resp 18; Temp 98.6(O); Pulse Ox 100% on R/A; Weight 72.57 kg jb4 (R); Height 5 ft. 10 in. (177.80 cm) (R); Pain 5/10; 22:47 BP 128 / 89; Pulse 60; Resp 16; Pulse Ox 100% on R/A; jb4 23:04 BP 121 / 83; Pulse 78; Resp 16; Pulse Ox 96% on R/A; mt 07/02 00:53 BP 116 / 71; Pulse 84; Resp 16; Pulse Ox 96% on R/A; mt 01:30 BP 112 / 68; Pulse 87; Resp 16; Pulse Ox 93% on R/A; jb4 07/01 21:36 Body Mass Index 22.96 (72.57 kg, 177.80 cm) jb4 ED Course: 07/01 21:07 Patient arrived in ED. es 21:16 Angel Luis Law MD is Attending Physician. tw4 21:28 Inserted saline lock: 20 gauge in right antecubital area, using aseptic technique. ky Blood collected. 21:36 Suhail Streeter RN is Primary Nurse. jb4 21:42 Triage completed. jb4 21:43 Arm band placed on right wrist. jb4 21:43 Patient has correct armband on for positive identification. Bed in low position. Call jb4 light in reach. Side rails up X 1. Pulse ox on. NIBP on. 21:58 Radiology exam delayed due to lab results not completed at this time. (BUN/Creatinine). vr 22:[address] via wheelchair. nj 22:34 CT Abd/Pelvis - W/Contrast In Process Unspecified. EDMS 23:35 Jc Renee MD is Hospitalizing Provider. tw4 07/02 01:51 No provider procedures requiring assistance completed. Patient admitted, IV remains in jb4 place. Administered Medications: 00:33 Drug: Flagyl 500 mg Volume: 100 ml; Route: IVPB; Rate: 200 ml/hr; Infused Over: 30 jb4 mins; Site: right antecubital; 01:05 Follow up: Response: No adverse reaction; IV Status: Completed infusion jb4 00:33 Drug: LevaQUIN 500 mg Volume: 100 ml; Route: IVPB; Infused Over: 60 mins; Site: right jb4 antecubital; 01:40 Follow up: Response: No adverse reaction; IV Status: Completed infusion jb4 01:08 Drug: Zofran 4 mg Route: IVP; Site: right antecubital; jb4 01:50 Follow up: Response: No adverse reaction; Nausea is decreased jb4 01:10 Drug: morphine 4 mg Route: IVP; Site: right antecubital; jb4 01:50 Follow up: Response: No adverse reaction; Pain is decreased jb4 Outcome: 07/01 23:35 Decision to Hospitalize by Provider. tw4 07/02 01:51 Admitted to Tele accompanied by tech, via wheelchair, room 415, with chart, Report jb4 called to VITO Corona Condition: stable Discharge instructions given to patient, Instructed on the need for admit, Demonstrated understanding of instructions. 01:54 Patient left the ED. jb4 Signatures: Dispatcher [employer] Bailee Strange Victoria vr Bryson, James, RN RN jb4 Fabricio Leung Moriah mt Wadley, Terrence, MD MD tw4
[2018-07-02] MEDS ORDERED: Levofloxacin500mg IV 500 MG/100 ML BAG IV ONE (00:30)
[2018-07-02] MEDS ORDERED: METRONIDAZOLE 500mg IVPB 500 MG/100 ML BAG IV ONE (00:30)
[2018-07-02] MEDS: Levofloxacin 750mg IV 750 MG/150 ML BAG IV SCH (01:00)
[2018-07-02] MEDS ORDERED: ONDANSETRON 4 MG/2 ML VIAL ONE (01:10)
[2018-07-02] MEDS ORDERED: MORPHINE 4 MG/ML SYR ONE (01:10)
[2018-07-02 02:07] VITALS: BMI 21.2
[2018-07-02 08:42] LABS: Absolute Lymphocytes (CBC) 0.8 K/uL (0.7-4.9); Absolute Monocytes 1.4 K/uL (0.1-1.3); Absolute Neutrophil 11.9 K/uL (1.8-8.0); Basophils % 0.3 % (0-1.3); Eosinophils % 3.7 % (0-4.4); Lymphocytes % 5.5 % (15.3-44.8); MCH 29.5 pg (27.0-35.0); MPV 7.6 fL (7.6-11.3); Monocytes % 9.7 % (3.3-12.3); RBC Red Blood Cell Count 4.48 M/uL (4.33-5.43)
[2018-07-02] MEDS: NA CHLORIDE 0.9% 1,000 ML IV SCH ×4 (08:54→22:27)
[2018-07-02 08:55] LABS: Protime INR 1.18
[2018-07-02] MEDS ORDERED: FENTANYL CITR 100 MCG/2 ML IV PRN (09:05)
[2018-07-02] MEDS: METRONIDAZOLE 500mg IVPB 500 MG/100 ML BAG IV SCH ×3 (09:29→21:30)
[2018-07-02] MEDS ORDERED: FENTANYL CITR 100 MCG/2 ML ONE (09:57)
[2018-07-02] MEDS ORDERED: GLYCOPYRROLATE 0.2 MG/ML SYR ONE (09:57)
[2018-07-02] MEDS ORDERED: PROPOFOL 200 MG/20 ML VIAL IV ONE (09:57)
[2018-07-02] MEDS ORDERED: MIDAZOLAM HCL 2 MG/2 ML INJ ONE (09:57)
[2018-07-02] MEDS ORDERED: ROCURONIUM 50 MG/5 ML VIAL IV ONE (09:58)
[2018-07-02] MEDS ORDERED: NEOSTIGMINE 1 MG/ML -5 ML SYRINGE ONE (09:58)
[2018-07-02] MEDS ORDERED: LIDOCAINE 2% MPF 5 ML VIAL ONE (09:58)
[2018-07-02] MEDS ORDERED: ONDANSETRON HCL 40 MG/20 ML VIAL ONE (09:58)
[2018-07-02] MEDS ORDERED: KETOROLAC 30 MG/ML INJ ONE (09:58)
[2018-07-02] MEDS ORDERED: ALBUTEROL 2.5 MG/3 ML NEB SOL ONE (10:13)
[2018-07-02] MEDS: BUPIVACA 0.5%/EPI 0.0005%/PF 30 ML VIAL ONE ×2 (10:42→12:01)
--- NOTE | 2018-07-02 10:52 | HP ---
Date of Admission: 07/01/2018 Brief History Of Present Illness: The patient is a 47-year-old male, known to me from past admission s with a history significant for ankylosing spondylitis, psoriasis, and recently he had a colonoscopy , which showed multiple inflammatory polyps, consistent with a diagnosis of an inflammatory bowel dis ease. He comes to the hospital with a 1-day history of right lower quadrant abdominal pain, which wa s significant and sharp in the right lower quadrant and unrelenting, worse with ambulation and moveme nt, better with resting. He has not had similar episodes before in the past. He has had multiple ep isodes of diverticulitis x3, however, this did not feel like that was on the opposite side and did no t have the same characteristics as the previous episodes of diverticulitis. As such, he had come to the emergency room last evening. He had some low-grade fever. No other complaints at that time. Past Medical History: Significant for rheumatoid arthritis, pneumonia, eczema, ankylosing spondyliti s, diverticulitis x2 and multiple inflammatory polyps of the colon consistent with a possible diagnos is of inflammatory bowel disease, but not confirmed at this time. Past Surgical History: Included elbow surgery, cataract surgery and colonoscopy recently. Allergies: NO KNOWN DRUG ALLERGIES. Medications: None. Social History: He denies smoking, alcohol, or recreational drug use. Family History: Reviewed, noncontributory, 10-point review of systems other than HPI, denies. Physical Examination: Vital Signs: At the time of my examination, his BMI was 21. His vital signs were blood pressure 110 /64, pulse 75, respiratory rate 20, and temperature 99.3. General: He is awake, alert, and oriented. Psychiatric: He is appropriate and conversive. HEENT: He is normocephalic. Sclerae anicteric. Mucous membranes are moist. Oropharynx clear. Neck: Supple. No JVD. Chest: Normal expansion and excursion. Cardiovascular: Regular rhythm. Pulmonary: Clear to auscultation bilaterally. Abdomen: Soft, but positive focal peritonitis in the right lower quadrant consistent with appendicit is. Positive psoas sign. Positive mild voluntary guarding. SKIN: His skin is warm, dry and psoriatic. Laboratory Data: His white blood cell count is 14.7, hemoglobin is 13.2, hematocrit of 39.0, and hector telet count is 368. His neutrophils are 80%. He had a PT of 13.9, INR 1.18, and PTT is 30.6. Sodiu m 140, potassium 3.8, chloride 105, carbon dioxide 29, BUN 19, creatinine is 0.8, glucose is 74, tota l bilirubin 1.6, direct component 0.4, AST 20, ALT 37, alkaline phosphatase was 60. His lipase was [address] He [address] scan performed of the abdomen and pelvis. The official dictation is currently rogelioin lisa. However, I spoke with the ER physician last evening and reviewed the images myself and found that he does have inflammation of the right lower quadrant consistent with a possible early appendicitis. Therefore, the plan was, 1.IV fluid hydration. 2.Antibiotic coverage to see if we could alleviate this without surgical intervention. However, the patient has been here for approximately 12 hours and has not gotten much symptomatic improvement and therefore, I would like to proceed with a laparoscopic, possible open, appendectomy. I have explain ed the risks, benefits, and alternatives of this plan, including, but not limited to bleeding, infect ion, damage to surrounding tissues, need for further operations and procedures and if he indeed has i nflammatory bowel disease, its complication rate from any surgical intervention, particularly in area s of inflammation. If the right-sided colon is inflamed, this might involve a much larger surgery, i ncluding right hemicolectomy, possible diversion with ostomy, ileostomy versus colostomy and indicated procedures. He agrees to proceed as indicated. JAIME/ARMIREZ Voice ID: [id number]
[2018-07-02] MEDS: Ringers Lactate 1,000 ML IV ONE ×2 (10:58→11:10)
--- NOTE | 2018-07-02 11:28 | P.OP ---
Retail Warehouse Associate: REID KOENIG Preoperative diagnosis: Acute Appendicitis Postoperative diagnosis: Acute Appendicitis Primary procedure: Laparoscopic Appendectomy Secondary procedure: Abdominal Washout Anesthesia: GETA + Local Estimated blood loss: <2cc Specimen: Appendix Findings: Appendix appeared normal, + murky fliud, + hernias Complications: None Transferred to: Recovery Room Condition: Good
--- NOTE | 2018-07-02 11:32 | RAD REPORT ---
EXAM DESCRIPTION: CTAbdomen Pelvis W Contrast - 07/02/2018 9:15 am CLINICAL HISTORY: Abdominal pain. ABD PAIN COMPARISON: Abdomen Pelvis W Contrast dated 04/12/2018; Abdomen Pelvis W Contrast dated 01/06/2018 TECHNIQUE: Biphasic CT imaging of the abdomen and pelvis was performed with 100 ml non-ionic IV cont rast. All CT scans are performed using dose optimization technique as appropriate and may include automated exposure control or mA/KV adjustment according to patient size. FINDINGS: The lung bases are clear.A few small foci of post free air seen in the left upper quadrant , improved since the comparative CT study. The liver, spleen, pancreas, adrenal glands and kidneys are within normal limits. Significant fecal retention in the colon. Small collection of gas is present along the posterior uma in of the sigmoid colon measuring 2 x 3 cm. Appendix is upper limit normal in size 8 mm. No evidence of significant lymphadenopathy. No suspicious bony findings. IMPRESSION: Upper limit of normal appendix measuring mm in the right lower quadrant. Suggest correla tion clinical signs and symptoms of acute appendicitis. Improvement in the previously noted sigmoid colon inflammation and pneumoperitoneum. Small loculated perisigmoid gas collection is still present measuring approximately 2 x 3 cm.
[2018-07-02] MEDS ORDERED: MEPERIDINE HCL 50 MG/ML AMP ONE (11:41)
[2018-07-02] MEDS ORDERED: ONDANSETRON 4 MG/2 ML VIAL IV PRN (11:51)
[2018-07-02] MEDS ORDERED: NA CHLORIDE 0.9% 1,000 ML ONE (12:18)
--- NOTE | 2018-07-02 12:46 | OP ---
Date of Procedure: 07/02/2018 Surgeon: Jc Renee MD, Gas Substation Operator: Amarilys Craven. Preoperative Diagnosis: Early acute appendicitis. Postoperative Diagnosis: Early acute appendicitis. Procedures Performed: 1.Laparoscopic appendectomy. 2.Abdominal washout. 3.Exploration of abdomen laparoscopically. Anesthesia: General endotracheal plus 0.5% Marcaine. Estimated Blood Loss: Less than 2 mL. Specimen: Vermiform appendix. Findings: 1.Appendix appeared relatively normal. There was some inflammatory fluid in the right lower quadran t around the appendix, but this was not obvious source. There was murky fluid in the pelvis, in dudley tion. 2.The patient has bilateral inguinal hernias that are widely patent. 3.The patient has a umbilical hernia with no contents. 4.The patient's intestines had a lead-pipe appearance consistent with the likely diagnosis of inflam matory bowel disease. There was minimal global inflammation to the intestine as a whole. Some areas had a slight increase compared to others including the small bowel consistent with a possible Crohn' s diagnosis, but no confirmation has been performed at this time. In addition, I did find the patien t had evidence of adhesions to particularly the left lower quadrant with purulent fluid in this area as well. This area was explored and some murky fluid was removed from this area as well. Complications: There was a small streak injury to the liver upon suctioning, which did not bleed. Disposition: Transferred to recovery room in good condition. Procedure In Detail: The patient was brought to the operating room, prepped and draped in the usual sterile fashion after adequate anesthesia was achieved, an infraumbilical trocar was placed using a 5 mm 0-degree optical trocar. Introduction to the abdomen was performed safely without any injury to vital structures. The area was inspected. Insufflation was obtained to 15 mmHg at this time. Addit ional trocar site was chosen in the right lower quadrant. This was similarly anesthetized and sharpl y incised. A 5-mm trocar was introduced in the abdomen without evidence of complication. The umbili rizwana trocar was then up-sized to 12 mm under direct visualization without evidence of complication. A dditional trocar site was chosen in left lower quadrant. This similarly anesthetized and sharply inc ised and a 5-mm trocar was introduced in the abdomen without evidence of complication. The patient w as positioned in head down, right side up position. The appendix was easily grasped, elevated, and a s above, there was some minimal murky fluid in this area. The appendix did not have obvious inflamma tory changes other than the same consistency as the remainder of the intestine. The mesoappendiceal window was created with the [place] retractor, Endo AILIN 35 blue load fired across the base of the ap pendix with good approximation of tissues. The LigaSure device was used to take the mesoappendix gera n. The appendix was then removed and sent off for pathologic examination after being removed through an EndoCatch bag in the umbilical trocar. After insufflation was obtained, the abdomen was then copper plater iously irrigated multiple times. The abdomen was inspected in addition at this time and irrigated. Upon suctioning, there was a small scraping to the capsule of the liver on the left lobe anterior mid surface. This was inspected, did not bleed. However, I chose to fulgurate the area over the top to ensure hemostasis was achieved at this time. Moving on, I inspected the pelvis and I found that the patient had 2 bilateral inguinal hernias, which were easily visualized, in addition to an umbilical hernia. Moving around circumferentially, there was murky fluid in the right lower quadrant in the ar ea of the appendix. However, again no obvious perforation, and there was global inflammatory changes , so it was difficult to discern if this was the actual site of the infection at this time. Continui ng through the pelvis, I irrigated the area. The patient had adhesions to the small bowel, which wer e mostly alveolar and thin and some raggedy appearance to tissues hanging off the abdominal wall, par ticularly in the area of the inguinal hernias bilaterally. Moving around, the patient did have colon and some small bowel firmly adherent to the left lateral abdominal wall consistent with his previous history of perforated diverticulitis in the past and diverticular abscess. The gentle traction was used to open these planes and some minimal purulent fluid was encountered on the left lower quadrant. This was irrigated copiously. There was no injury to the bowel. However, the bowel could not be r un in its entirety due to the significant adhesions at this area. However, all visible portions of t he bowel were inspected, and no obvious perforation was appreciated. I looked at all the intraperito shukri portions of the colon. I did not see any obvious perforations. I additionally looked at as muc h small bowel as possible given the intraabdominal adhesions that were present, particularly in the l eft lower quadrant. Therefore, a complete examination of the small bowel and intestine was impossibl e at this time without converting to a significant significantly larger operation, which I again, giv en the gross inflammatory change to the intestine, decided that this would outweigh benefits in this scenario, and as such, I just continued to copiously irrigate the abdomen with approximately 6 L of s tran until completely clear. I suctioned out all pericolic gutters as well as the perihepatic space and down in the pelvis. I then placed the omentum back in the normal anatomic position, as it was s itting up higher and out of the normal anatomic position. At this point, the patient was positioned back in a neutral position. Irrigation and suctioning was performed one last time, until the majorit y of the irrigant was removed. I then decided to close the umbilical trocar site, so the trocar was removed and the umbilical trocar site closed with a Booker-Hemal suture passer with 0 Vicryl in in terrupted fashion with good approximation of the tissues. The postoperative site was inspected one l ast time, and the david were found to be in good anatomic position without leakage and at the confl uence of the cecum. There was no evidence of bleeding, and the LigaSure had got good hemostasis of t he mesoappendix and as such, no additional hemostatic maneuvers were required. Therefore, the abdome n was completely desufflated under direct visualization without evidence of complication. All trocar s were then removed. All skin incisions were copiously irrigated and closed with a 4-0 Monocryl in a running fashion, Dermabond was placed over top. The patient tolerated the procedure well with no co mplication, and transferred to the PACU in good condition. All counts were correct at the end of case. JAIME/RAMIREZ Voice ID: [id number] Report ID: [id number]
[2018-07-02] MEDS: HYDROCODONE/APAP 7.5/325 MG TAB PO PRN ×3 (14:18→22:27)
[2018-07-02] MEDS: INSULIN -REGULAR HUMAN 50 UNIT/0.5 ML ML SQ SCH ×2 (16:30→21:00)
[2018-07-02 18:56] LABS: Urine Appearance CLOUDY; Urine Blood 1+ (NEG); Urine Color DK YELLOW; Urine Glucose NEGATIVE (NEG); Urine Protein TRACE (NEG); Urine Specific Gravity >=1.030 (1.005-1.030); Urine Urobilinogen 0.2 mg/dL (0.2-1.0); Urine pH 5.5 (5.0-7.0)
[2018-07-02 19:18] LABS: Urine Bacteria 20-50 /HPF (NONE SEEN); Urine Culture Reflex Order REFLEXED
[2018-07-03] MEDS: Levofloxacin 750mg IV 750 MG/150 ML BAG IV SCH
[2018-07-03 02:38] VITALS: O2SAT 94
[2018-07-03] MEDS: HYDROCODONE/APAP 7.5/325 MG TAB PO PRN ×2 (03:10→09:20)
[2018-07-03] MEDS: METRONIDAZOLE 500mg IVPB 500 MG/100 ML BAG IV SCH ×2 (03:11→10:10)
[2018-07-03] MEDS: NA CHLORIDE 0.9% 1,000 ML IV SCH (04:00)
[2018-07-03 05:18] LABS: Absolute Lymphocytes (CBC) 0.7 K/uL (0.7-4.9); Absolute Monocytes 1.2 K/uL (0.1-1.3); Absolute Neutrophil 9.5 K/uL (1.8-8.0); Basophils % 0.2 % (0-1.3); Eosinophils % 5.7 % (0-4.4); MCH 30.2 pg (27.0-35.0); Monocytes % 9.8 % (3.3-12.3); RBC Red Blood Cell Count 4.02 M/uL (4.33-5.43)
[2018-07-03 05:36] LABS: BUN Blood Urea Nitrogen 13 mg/dL (7-18); Bicarbonate 26 mmol/L (21-32); Glucose Level 83 mg/dL (74-106); Phosphorus 3.2 mg/dL (2.5-4.9); Potassium 3.7 mmol/L (3.5-5.1); Sodium Level 140 mmol/L (136-145)
[2018-07-03] MEDS: DIPHENHYDRAMINE 25 MG TAB/CAP PO PRN ×2 (06:30)
[2018-07-03] MEDS ORDERED: POTASSIUM CL SA 10 MEQ TAB PO ONE (07:00)
[2018-07-03] MEDS: INSULIN -REGULAR HUMAN 50 UNIT/0.5 ML ML SQ SCH (07:30)
[2018-07-03] MEDS ORDERED: ENOXAPARIN 40 MG/0.4 ML SQ SCH (09:00)
[2018-07-03 09:28] VITALS: BP 115/73; TEMP 98.4
== END 2018-07-03 10:58 | disposition home or self-care (01) | DRG 343 ==
LOC: ER 21:05 → ERHOLD 23:35 → 4TH 07-02 01:37
PROVIDERS: ADMIT Surgery; ATTEND Surgery
PROC: 0DTJ4ZZ Resection of Appendix, Percutaneous Endoscopic Approach (ICD-10-PCS; principal; 2018-07-02 10:00)
DX: K35.30 Acute appendicitis with localized peritonitis, without perforation or gangrene (principal); J45.909 Unspecified asthma, uncomplicated; K40.90 Unilateral inguinal hernia, without obstruction or gangrene, not specified as recurrent; K42.9 Umbilical hernia without obstruction or gangrene; K66.0 Peritoneal adhesions (postprocedural) (postinfection); M45.9 Ankylosing spondylitis of unspecified sites in spine; M06.9 Rheumatoid arthritis, unspecified
CPT/HCPCS: 36415; 74177; 80048; 80076; 81001; 82962; 83690; 83735; 84100; 85025; 85610; 85730; 87086; 87088; 88304; 94640; 94760; 96365; 96368; 96375; 99285; J1650; J2175; J2250; J2405; J2704; J2710; J3010; J7030; Q9967

== ENCOUNTER → 2023-08-30 | Emergency (ER) | payer BC ==
[~2023-08-30] MED LIST: AZITHROMYCIN 500 MG INJ IVPB ONE; CEFTRIAXONE 1000 MG/VIAL ONE; CLINDAMYCIN 900MG/D5W 900 MG/50 ML IVPB IV ONE; NA CHLORIDE 0.9% 1,000 ML ONE; NA CHLORIDE 0.9% 250 ML ONE; VANCOMYCIN 1 GM/VIAL ONE; VANCOMYCIN 1.5 GM in NA CHLORIDE 0.9% 500 ML IVPB ONE
[2023-08-30 16:42] LABS: Absolute Lymphocytes (CBC) 1.3 K/uL (0.7-4.9); Hematocrit 23.5 % (39.6-49.0); Lymphocytes % 4.6 % (15.3-44.8); MCV 58.1 fL (80-100); MPV 6.5 fL (7.6-11.3); Platelets 771 thou/uL (152-406); RBC Red Blood Cell Count 4.04 M/uL (4.33-5.43)
[2023-08-30 16:49] LABS: Potassium 4.4 mEq/L (3.5-5.1); Troponin High Sensitivity 4.8 pg/mL (<58.9)
--- NOTE | 2023-08-30 16:54 | RAD REPORT ---
EXAM DESCRIPTION: Fritz Single View08/30/2023 4:38 pm CLINICAL HISTORY: SOB COMPARISON: Abdomen Pelvis W Contrast dated 07/01/2018 TECHNIQUE: Portable AP view of the chest. FINDINGS: Rounded right lower lung large airspace opacity containing a lucent component in its super ior aspect, with suspected air-fluid level. This partially obscures the right heart margin. Left lung is clear. No pneumothorax or effusion. The cardiomediastinal contours are unremarkable. IMPRESSION: Right lower lung airspace opacity with lucent component, suggestive of a lung abscess or cavitary mass.
[2023-08-30 17:29] LABS: SARS-CoV-2 Antigen Rapid Res Negative (Negative)
[2023-08-30 17:46] LABS: Protime INR 1.45
--- NOTE | 2023-08-30 18:38 | ER ---
Nurse's Notes [facility] Name: Theodore Harrell Age: 52 yrs Sex: Male : 1970 Arrival Date: 08/30/2023 Time: 15:59 Bed 3 Private MD: Diagnosis: Abscess of right lower lung with adjacent pneumonia;Pleural effusion, not elsewhere classified;Anemia, unspecified;Sepsis, unspecified organism Presentation: 08/30 16:02 Chief complaint: Patient states: Sent over by PCP's office due to "no lung sounds" on nj1 right field. Pt states he has had cough and congestion for a couple of days, reason he visited PCP. 16:02 Coronavirus screen: Vaccine status: Patient reports being unvaccinated. Ebola Screen: nj Patient denies travel to an Ebola-affected area in the 21 days before illness onset. Initial Sepsis Screen: Does the patient meet any 2 criteria? No. Patient's initial sepsis screen is negative. Does the patient have a suspected source of infection? No. Patient's initial sepsis screen is negative. Risk Assessment: Do you want to hurt yourself or someone else? Patient reports no desire to harm self or others. 16:02 Method Of Arrival: Ambulatory [facility] 16:02 Acuity: ROULA 3 nj Historical: - Allergies: 16:12 No Known Allergies; nj1 - PMHx: 16:12 Ankylosing Spondylitis; Arthritis; Asthma; Diverticulitis; eczema; Atrial fibrillation; nj1 - Immunization history:: Client reports having NOT received the Covid vaccine. - Social history:: Smoking status: Patient denies any tobacco usage or history of. Screenin:15 [facility] ED Fall Risk Assessment (Adult) History of falling in the last 3 months, aa5 including since admission No falls in past 3 months (0 pts) Confusion or Disorientation No (0 pts) Intoxicated or Sedated No (0 pts) Impaired Gait No (0 pts) Mobility Assist Device Used No (0 pt) Altered Elimination No (0 pt) Score/Fall Risk Level 0 - 2 = Low Risk Oriented to surroundings, Maintained a safe environment, Educated pt \\T\\ family on fall prevention, incl call for assistance when getting out of bed. Abuse screen: Denies threats or abuse. Nutritional screening: No deficits noted. Tuberculosis screening: No symptoms or risk factors identified. Assessment: 16:15 General: Appears comfortable, Behavior is calm, cooperative. Pain: Denies pain. Neuro: aa5 Level of Consciousness is awake, alert, obeys commands, Oriented to person, place, time, situation. Cardiovascular: Heart tones S1 S2 present Rhythm is regular. Respiratory: Reports shortness of breath cough that is productive, since 1 week ago Airway is patent Respiratory effort is even, unlabored, Respiratory pattern is regular, symmetrical, Breath sounds are diminished in right middle lobe, right lower lobe, right posterior middle lobe and right posterior lower lobe. GI: Abdomen is round non-distended, Bowel sounds present X 4 quads. Abd is soft X 4 quads. : No signs and/or symptoms were reported regarding the genitourinary system. EENT: Oral mucosa is dry. Derm: Skin is dry, Skin is pale, Skin temperature is warm. Musculoskeletal: Range of motion: intact in all extremities. 17:00 Neuro: Level of Consciousness is awake, alert, obeys commands, Oriented to person, aa5 place, time, situation. Respiratory: Airway is patent Respiratory effort is even, unlabored, Respiratory pattern is regular, symmetrical. Derm: Skin is dry, Skin is pale, Skin temperature is warm. 17:47 Reassessment: Pt to CT scan . aa5 18:06 Neuro: Level of Consciousness is awake, alert, obeys commands, Oriented to person, aa5 place, time, situation. Respiratory: Airway is patent Respiratory effort is even, unlabored, Respiratory pattern is regular, symmetrical. Derm: Skin is dry, Skin is pale, Skin temperature is warm. 18:27 Neuro: Level of Consciousness is awake, alert, obeys commands, Oriented to person, aa5 place, time, situation. Respiratory: Airway is patent Respiratory effort is even, unlabored, Respiratory pattern is regular, symmetrical. Derm: Skin is dry, Skin is pale, Skin temperature is warm. 18:48 Reassessment: Dr. Hua at bedside . aa5 19:00 Reassessment: Pt appears distressed at this time, c/o feeling cold, pt shaking aa5 uncontrollably, c/o increased SOB, tachypnea noted, see VS for current VS. Blankets provided to patient. Admitting hospitalist (Dr. Shah) notified at 1905. . 19:10 Reassessment: Dr. Omitigun at bedside . aa5 19:29 Reassessment: Patient and/or family updated on plan of care and expected duration. Pain vc1 level reassessed. General: Appears uncomfortable, Behavior is cooperative. 20:32 Reassessment: Patient appears in no apparent distress at this time. Patient and/or tm6 family updated on plan of care and expected duration. Pain level reassessed. 21:00 Reassessment: Patient appears in no apparent distress at this time. Patient and/or tm6 family updated on plan of care and expected duration. Pain level reassessed. Patient states symptoms have improved. Vital Signs: 16:02 BP 118 / 74; Pulse 56; Resp 18; Temp 98.4(O); Pulse Ox 99% on R/A; Weight 70.31 kg; nj1 Height 5 ft. 9 in. ; 17:00 BP 108 / 72; Pulse 61; Resp 18 S; Pulse Ox 94% on R/A; aa5 19:00 BP 104 / 74; Pulse 110; Resp 40 S; Temp 98.2(O); Pulse Ox 92% on R/A; aa5 19:01 Pulse Ox 100% on 4 lpm NC; aa5 19:15 BP 141 / 81; Pulse 91; Resp 32; Pulse Ox 95% on 4 lpm NC; vc1 19:38 BP 117 / 76; Pulse 84; Resp 23; Pulse Ox 98% on 4 lpm NC; tm6 19:51 BP 115 / 71; Pulse 84; Resp 24; Pulse Ox 97% on 4 lpm NC; tm6 20:31 BP 110 / 70; Pulse 90; Resp 24; Pulse Ox 96% on 4 lpm NC; tm6 21:00 BP 114 / 69; Pulse 87; Resp 24; Pulse Ox 95% on 4 lpm NC; Pain 0/10; tm6 21:15 BP 108 / 71; Pulse 84; Resp 19; Pulse Ox 96% on 4 lpm NC; vc1 21:30 BP 112 / 68; Pulse 84; Resp 22; Pulse Ox 96% ; vc1 21:45 BP 111 / 72; Pulse 83; Resp 23; Pulse Ox 98% ; vc1 22:00 BP 108 / 71; Pulse 84; Resp 21; Pulse Ox 96% on 4 lpm NC; tm6 22:30 BP 104 / 67; Pulse 84; Resp 21; Pulse Ox 96% on 4 lpm NC; tm6 23:10 BP 98 / 63; Pulse 80; Temp 98.1(TE); Pulse Ox 96% on 4 lpm NC; tm6 23:35 BP 102 / 68; Pulse 82; Resp 22; Pulse Ox 97% on 4 lpm NC; vc1 16:02 Body Mass Index 22.89 (70.31 kg, 175.26 cm) nj1 21:00 Pain Scale: Adult 6 ED Course: 16:00 Patient arrived in ED. im 16:02 Dee Beavers, VITO is Primary Nurse. aa5 16:02 eBrtram Hua MD is Attending Physician. ec2 16:11 Triage completed. nj1 16:14 Arm band placed on. nj1 16:15 Patient has correct armband on for positive identification. Bed in low position. Call aa5 light in reach. Side rails up X 1. Adult w/ patient. Client placed on continuous cardiac and pulse oximetry monitoring. NIBP monitoring applied. 16:15 Initial lab(s) drawn, by me, sent to lab. Inserted saline lock: 20 gauge in right aa5 antecubital area, using aseptic technique. Blood collected. 16:40 XRAY Chest (1 view) In Process Unspecified. EDMS 17:25 First set of blood cultures drawn by me. aa5 17:43 Second set of blood cultures drawn by me. aa5 17:43 lactate sent to lab. aa5 17:45 Inserted saline lock: 18 gauge in left forearm, using aseptic technique. aa5 18:00 CT Chest W/ Con In Process Unspecified. EDMS 18:38 Darrick Valenzuela MD is Hospitalizing Provider. ec2 19:00 Report given to VITO Becerra. aa5 19:16 Initiated transfer with [facility]. Spoke with [facility] transfer [facility] coordinator. 19:48 Attending Physician role handed off by Bertram Hua MD ms3 19:48 Dmitry Castrejon DO is Attending Physician. ms3 20:20 [facility] mds coordinator called back to initiate Doc to Doc with Nitin Castrejon and ICU doc Solange from [facility]. 21:[address] [facility] to get an update on transfer status, after waiting [facility] an hour in a half. Spoke with [facility] transfer center coordinator, stated we should be receiving a call back soon. 21:[address] [facility] coordinator returned call to initiate doc to doc with [address] hospitilist and Dr Castrejon. 22:[address] [facility] returned call stating pt was declined due to [facility] capacity. 22:13 Initiated transfer with [facility], spoke with Jamia, [facility], [facility] is at capacity, [facility] but will try a different location if any beds available. 22:23 Initiated transfer with [facility], spoke [place] [id number] coordinator. 22:33 Jamia mds coordinator from [facility] returned call to speak with Dr Castrejon, [facility] to initiate Doc to Doc with Thoracic surgeon and ICU doctor. 23:10 Contacted EMS spoke with Checo flaherty 20min. [facility] 23:45 No provider procedures requiring assistance completed. Patient transferred, IV remains vc1 in place. Administered Medications: 18:06 Drug: Rocephin IV 1 grams IV at calculated rate once; Given slow IV push per pharmacy aa5 instructions Route: IV; Rate: calculated rate; Site: right antecubital; 18:20 Follow up: Response: No adverse reaction aa5 22:44 Follow up: IV Status: Completed infusion; IV Intake: 10ml vc1 18:27 Drug: AZITHromycin IVPB 500 mg IVPB once over 1 hrs; (mix in 250 mL NS) Route: IVPB; aa5 Infused Over: 1 hrs; Site: right antecubital; 19:37 Follow up: IV Status: Completed infusion; IV Intake: 250ml vc1 19:27 Drug: Clindamycin IVPB 900 mg IVPB once over 30 mins; (mix in 50 mL) Route: IVPB; vc1 Infused Over: 30 mins; Site: left antecubital; 20:07 Follow up: IV Status: Completed infusion; IV Intake: 50ml vc1 21:54 Drug: NS 0.9% IV 1000 ml IV at 1 bolus Per protocol; 1000 mL bolus Route: IV; Rate: 1 tm6 bolus; Site: left forearm; 22:40 Follow up: Response: No adverse reaction; IV Intake: 1000ml tm6 22:44 Follow up: IV Status: Completed infusion; IV Intake: 1000ml vc1 21:54 Drug: vancoMYCIN IVPB 1 grams IVPB once over 2 hrs Route: IVPB; Infused Over: 2 hrs; tm6 Site: right antecubital; 23:44 Follow up: IV Status: Infusion continued upon transfer vc1 22:43 Drug: NS 0.9% IV 1000 ml IV at 125 ml/hr continuous Route: IV; Rate: 125 ml/hr; Site: vc1 right antecubital; 23:44 Follow up: IV Status: Infusion continued upon transfer vc1 Medication: 23:46 VIS not applicable for this client. vc1 Intake: 19:37 IV: 250ml; Total: 250ml. vc1 20:07 IV: 50ml; Total: 300ml. vc1 22:40 IV: 1000ml; Total: 1300ml. tm6 22:44 IV: 1000ml; Total: 2300ml. vc1 22:44 IV: 10ml; Total: 2310ml. vc1 Outcome: 18:38 Decision to Hospitalize by Provider. ec2 19:48 ER care complete, transfer ordered by . ms3 23:45 Transferred by ground EMS to [facility], Transfer form vc1 completed. X-rays sent w/ patient. Note: Transferred to [facility] 23:45 Condition: stable 23:45 Instructed on the need for transfer, 23:46 Patient left the ED. vc1 Signatures: Dispatcher [employer] Dee Tony RN RN aa5 Dmitry Castrejon DO DO ms3 Mariam Cagle RN RN vc1 Joanna Burton RN RN njSnow Mendoza Edwin, MD MD ec2 Izzy Barber jr12 Raquel Hutchinson RN RN tm6 Corrections: (The following items were deleted from the chart) 19:20 16:15 EENT: No signs and/or symptoms were reported regarding the EENT system. aa5 aa5 19:52 19:51 BP 115 / 71; Pulse 84bpm; Resp 24bpm; Pulse Ox 97% RA; tm6 tm6 21:25 20:20 [facility] mds coordinator called back to initiate Doc to Doc with ian Castrejon. jr12 22:38 22:33 Jamia mds coordinator from [facility] transfer center returned call to speak with Dr ian Castrejon. [id number]
--- NOTE | 2023-08-30 18:38 | EDPHYS ---
Physician Documentation [facility] Name: Theodore Harrell Age: 52 yrs Sex: Male : 1970 Arrival Date: 08/30/2023 Time: 15:59 Bed 3 Private MD: ED Physician Dmitry Castrejon HPI: 08/30 16:20 This 52 yrs old Male presents to ER via Ambulatory with complaints of ec2 Shortness Of Breath. 16:20 Patient arrives today for evaluation of shortness of breath. Patient states has been ec2 having 1 week of symptoms. States he is having cough and cold symptoms. Reports no fevers or chills, no nausea or vomiting. Has been on azithromycin as well as breathing treatments. Reports minimal improvement in symptoms. Patient reports history of asthma. Also history of A-fib. Denies any leg swelling. Denies any chest pain.. Historical: - Allergies: 16:12 No Known Allergies; nj1 - PMHx: 16:12 Ankylosing Spondylitis; Arthritis; Asthma; Diverticulitis; eczema; Atrial fibrillation; nj1 - Immunization history:: Client reports having NOT received the Covid vaccine. - Social history:: Smoking status: Patient denies any tobacco usage or history of. ROS: 16:20 Constitutional: as per hpi ec2 Exam: 16:20 Constitutional: GEN: NAD Head: atraumatic Eyes: EOMI Ears: External ears are ec2 normal. CV: regular rate LUNGS: no respiratory distress, scattered wheezes ABD: non-distended SKIN: no evidence of rashes MSK: no evidence of trauma NEURO: moves all extremities equally Vital Signs: 16:02 BP 118 / 74; Pulse 56; Resp 18; Temp 98.4(O); Pulse Ox 99% on R/A; Weight 70.31 kg; nj1 Height 5 ft. 9 in. ; 17:00 BP 108 / 72; Pulse 61; Resp 18 S; Pulse Ox 94% on R/A; aa5 19:00 BP 104 / 74; Pulse 110; Resp 40 S; Temp 98.2(O); Pulse Ox 92% on R/A; aa5 19:01 Pulse Ox 100% on 4 lpm NC; aa5 19:15 BP 141 / 81; Pulse 91; Resp 32; Pulse Ox 95% on 4 lpm NC; vc1 19:38 BP 117 / 76; Pulse 84; Resp 23; Pulse Ox 98% on 4 lpm NC; tm6 19:51 BP 115 / 71; Pulse 84; Resp 24; Pulse Ox 97% on 4 lpm NC; tm6 20:31 BP 110 / 70; Pulse 90; Resp 24; Pulse Ox 96% on 4 lpm NC; tm6 21:00 BP 114 / 69; Pulse 87; Resp 24; Pulse Ox 95% on 4 lpm NC; Pain 0/10; tm6 21:15 BP 108 / 71; Pulse 84; Resp 19; Pulse Ox 96% on 4 lpm NC; vc1 21:30 BP 112 / 68; Pulse 84; Resp 22; Pulse Ox 96% ; vc1 21:45 BP 111 / 72; Pulse 83; Resp 23; Pulse Ox 98% ; vc1 22:00 BP 108 / 71; Pulse 84; Resp 21; Pulse Ox 96% on 4 lpm NC; tm6 22:30 BP 104 / 67; Pulse 84; Resp 21; Pulse Ox 96% on 4 lpm NC; tm6 23:10 BP 98 / 63; Pulse 80; Temp 98.1(TE); Pulse Ox 96% on 4 lpm NC; tm6 23:35 BP 102 / 68; Pulse 82; Resp 22; Pulse Ox 97% on 4 lpm NC; vc1 16:02 Body Mass Index 22.89 (70.31 kg, 175.26 cm) nj1 21:00 Pain Scale: Adult tm6 MDM: 16:15 Patient medically screened. ec2 16:20 Data reviewed: vital signs. ED course: Patient arrives today for shortness of breath. ec2 Examination remarkable for cardiac findings as noted above. EKG obtained, independently reviewed and interpreted by me, shows sinus rhythm, rate of 57, no acute ST segment elevations, nonconcerning intervals. Will obtain lab work, viral swabs, chest x-ray. Currently considering process such as pneumonia, COPD/asthma exacerbation, viral infection. . 17:22 ED course: Metabolic profile reassuring. CBC shows marked leukocytosis with a WBC of ec2 28.9. Hemoglobin is anemic with a hemoglobin of 7.4. Troponin within normal ranges. Right lower lung mass identified, will obtain CT imaging for further elucidation of this. Flu negative. Will add on a septic workup. . 18:37 ED course: Lactic acid within normal ranges. Will admit for continued management of ec2 patient's lung abscess. Discussed case with the hospitalist, pending admission.. 19:48 ED course: Hospitalist, Dr Valenzuela, recommends transfer of this patient for large RLL ms3 abscess. Discussed necessity for transfer with patient and his . They understand/ agree with plan. Discussed case with Dr Hua . Patient given Rocephin, Clindamycin, and Azithromycin. Dr Valenzuela ordered Vancomycin.. 19:50 Transition of care: Care assumed from Bertram Hua MD. ms3 20:26 ED course: Discussed case with ICU physician Dr Narvaez. Patient can go to telemetry. ms3 Transfer center will have Hospitalist call. 21:28 ED course: Discussed case with Dr Santos and she accepts patient to PCU unit. . ms3 22:51 ED course: Patient accepted by [facility] Hospitalist. . ms3 22:52 Differential diagnosis: Anemia Bronchitis pneumonia, pulmonary edema, Sepsis Flu vs ms3 COVID. Antibiotic administration: Rocephin and Zithromax given, Vancomycin, Clindamycin. Consideration of Admission/Observation Patient transferred. Management of patient was discussed with the following: Hospitalist: [facility] Hospitalist. [place] Binder Coverer: Dr Banda ([facility] Thoracic surgery) and Dr Padron ([facility] ICU). I considered the following discharge prescriptions or medication management in the emergency department Medications were administered in the Emergency Department. See MAR. Independent interpretation of the following test(s) in the Emergency Department CT Scan: My interpretation is CT Images reviewed by me reveal large RLL abscess. Care significantly affected by the following chronic conditions: Asthma, Ankylosing Spondylitis, Arthritis, Diverticulitis, Eczema, Atrial Fibrillation. Counseling: I had a detailed discussion with the patient and/or guardian regarding the historical points, exam findings, and any diagnostic results supporting the discharge/admit diagnosis, lab results, radiology results, the need to transfer to another facility, for higher level of care. Response to treatment: the patient's symptoms have mildly improved after treatment, and as a result, I will transfer patient. 08/30 16:12 Order name: Basic Metabolic Panel; Complete Time: 17:22 aa5 08/30 16:12 Order name: CBC with Diff; Complete Time: 19:30 aa5 08/30 16:12 Order name: Troponin HS; Complete Time: 17:22 08/30 16:20 Order name: Influenza Screen (a \T\ B); Complete Time: 17:22 08/30 16:20 Order name: SARS RAPID; Complete Time: 17:40 08/30 17:22 Order name: Type And Screen; Complete Time: 18:35 08/30 17:23 Order name: Blood Culture Adult (2) ec2 08/30 17:23 Order name: Lactate w/ 2H reflex if indic.; Complete Time: 18:35 08/30 17:23 Order name: Protime (+inr); Complete Time: 17:51 08/30 17:23 Order name: Ptt, Activated; Complete Time: 17:51 08/30 19:19 Order name: Manual Differential; Complete Time: 19:30 EDMS 08/30 19:40 Order name: ABO/RH no charge; Complete Time: 19:41 EDMS 08/30 16:12 Order name: XRAY Chest (1 view); Complete Time: 17:22 08/30 17:24 Order name: CT Chest W/ Con; Complete Time: 18:51 08/30 16:12 Order name: EKG; Complete Time: 16:13 08/30 16:12 Order name: Cardiac monitoring; Complete Time: 16:13 08/30 16:12 Order name: EKG - Nurse/Tech; Complete Time: 16:12 08/30 16:12 Order name: IV Saline Lock; Complete Time: 16:12 08/30 16:12 Order name: Labs collected and sent; Complete Time: 16:12 08/30 16:12 Order name: O2 Per Protocol; Complete Time: 16:12 08/30 16:12 Order name: O2 Sat Monitoring; Complete Time: 16:12 08/30 17:23 Order name: IV Saline Lock - Large Bore; Complete Time: 17:46 ec2 Administered Medications: 18:06 Drug: Rocephin IV 1 grams IV at calculated rate once; Given slow IV push per pharmacy aa5 instructions Route: IV; Rate: calculated rate; Site: right antecubital; 18:20 Follow up: Response: No adverse reaction aa5 22:44 Follow up: IV Status: Completed infusion; IV Intake: 10ml vc1 18:27 Drug: AZITHromycin IVPB 500 mg IVPB once over 1 hrs; (mix in 250 mL NS) Route: IVPB; aa5 Infused Over: 1 hrs; Site: right antecubital; 19:37 Follow up: IV Status: Completed infusion; IV Intake: 250ml vc1 19:27 Drug: Clindamycin IVPB 900 mg IVPB once over 30 mins; (mix in 50 mL) Route: IVPB; vc1 Infused Over: 30 mins; Site: left antecubital; 20:07 Follow up: IV Status: Completed infusion; IV Intake: 50ml vc1 21:54 Drug: NS 0.9% IV 1000 ml IV at 1 bolus Per protocol; 1000 mL bolus Route: IV; Rate: 1 tm6 bolus; Site: left forearm; 22:40 Follow up: Response: No adverse reaction; IV Intake: 1000ml tm6 22:44 Follow up: IV Status: Completed infusion; IV Intake: 1000ml vc1 21:54 Drug: vancoMYCIN IVPB 1 grams IVPB once over 2 hrs Route: IVPB; Infused Over: 2 hrs; tm6 Site: right antecubital; 23:44 Follow up: IV Status: Infusion continued upon transfer vc1 22:43 Drug: NS 0.9% IV 1000 ml IV at 125 ml/hr continuous Route: IV; Rate: 125 ml/hr; Site: vc1 right antecubital; 23:44 Follow up: IV Status: Infusion continued upon transfer vc1 Disposition: 22:57 Critical Care:. ms3 Disposition Summary: 08/30/23 19:48 Transfer Ordered Notes: Transfer Location: [facility] ms3 Reason: Higher level of care ms3 Condition: Stable(08/30/23 19:48) ms3 Problem: new(08/30/23 19:48) ms3 Symptoms: are unchanged(08/30/23 19:48) ms3 Accepting Physician: Dr Santos(08/30/23 23:46) vc1 Diagnosis - Abscess of right lower lung with adjacent pneumonia ms3 - Pleural effusion, not elsewhere classified ms3 - Anemia, unspecified ms3 - Sepsis, unspecified organism ms3 Forms: - Medication Reconciliation Form ms3 - SBAR form ms3 Critical care time excluding procedures: 22:57 Critical care time: Bedside Care: 30 minutes, Consultation: 10 minutes, Family ms3 Intervention: 5 minutes. Total time: 45 minutes Signatures: Dispatcher [employer] EDMS Eloina Carrero, PAMELA-C [employer]-Csnw Dee Beavers, RN RN aa5 Dimitri Alvarez FNP-Lebron [employer]-Cla1 Dmitry Castrejon, DO ms3 Mariam Cagle RN RN vc1 Joanna Burton RN RN nj1 Bertram Hua MD MD [facility] Raquel Hutchinson RN RN tm6 Corrections: (The following items were deleted from the chart) 17:25 17:23 Accucheck ordered. ec2 aa5 17:25 17:23 Vital Signs ordered. ec2 aa5 19:47 18:38 Inpatient Admission ec2 ms3 19:47 18:38 Omitogun, Darrick ec2 ms3 19:47 18:38 Telemetry/MedSurg (Inpatient) ec2 ms3 19:47 18:38 Stable ec2 ms3 19:47 18:38 new ec2 ms3 19:47 18:38 are unchanged ec2 ms3 19:47 18:38 Standard ec2 ms3 19:47 18:38 ec2 ms3 19:47 18:38 Abscess of lung with pneumonia ec2 ms3 21:29 19:48 ms3 ms3 23:46 21:29 Dr Santos ms3 vc1
--- NOTE | 2023-08-30 18:50 | RAD REPORT ---
EXAM DESCRIPTION: CT - Thorax W/ Con - 08/30/2023 5:58 pm CLINICAL HISTORY: lung mass COMPARISON: Abdomen Pelvis W Contrast dated 07/01/2018 TECHNIQUE: Axial thin cut images of the chest were obtained following IV administration of Isovue-30 0. Multiplanar reformats were generated and reviewed. All CT scans are performed using dose optimization technique as appropriate and may include automated exposure control or mA/KV adjustment according to patient size. FINDINGS: Expansile ovoid opacity including most of the upper and posterior aspect of the right lowe r lobe, with surrounding consolidation, internal enhancing septations, liquefaction changes, with gas locules, resulting in some air-fluid levels. This measures 10.3 x 10.0 x 7.5 cm in greatest transver se, cc, and AP dimensions. No clear communication with the bronchial tree. Trace layering right pleur al effusion. Left lung is clear, without evidence of left-sided effusion. No pneumothorax. Right paratracheal enlarged lymph node measuring 2 cm in short axis. Mildly prominent right hilar and subcarinal lymph nodes. No significant aortic or pulmonary artery findings. Assessment is limited in the absence of IV contrast. No chest wall mass or abnormal axillary lymphadenopathy. Evaluation of the solid abdominal structures reveals no suspicious findings. IMPRESSION: Right lower lobe pulmonary abscess with adjacent pneumonia as detailed above. Trace layering right pleural effusion and reactive/ inflammatory right hilar and mediastinal lymph no judy are also seen.
[2023-08-30 19:18] LABS: Anisocytosis 2+; Blood Morphology Comment NOTED (NOT SEEN); Hypochromasia 2+; Ovalocytes 2+; Platelet Estimate INCR; Poikilocytosis 3+; Polychromasia 1+; Teardrop Cell 1+
[2023-08-31 02:29] VITALS: BP 102/68; TEMP 98.1; O2SAT 97
--- NOTE | 2023-09-01 16:56 | EKG ---
Test Date: 2023-08-30 Test Time: 19:16:10 Land Examiner: FRANCES MEASUREMENT RESULTS: Intervals: Rate: 101 HI: 124 QRSD: 80 QT: 360 QTc: 466 [place]: P: 47 HI: 124 QRS: 68 T: 69 INTERPRETIVE STATEMENTS: Sinus tachycardia with premature supraventricular complexes with occasional premature ventricular complexes Nonspecific ST and T wave abnormality Abnormal ECG Compared to ECG 08/30/2023 16:10:53 Atrial premature complex(es) now present Ventricular premature complex(es) now present ST (T wave) deviation now present Sinus bradycardia no longer present Electronically Signed On 09-01-23 16:52:11 [employer] by Solomon Zepeda
--- NOTE | 2023-09-01 16:56 | EKG ---
Test Date: 2023-08-30 Test Time: 16:10:53 Nib Finisher: Rose GEE MEASUREMENT RESULTS: Intervals: Rate: 57 AK: 140 QRSD: 90 QT: 426 QTc: 414 [place]: P: 46 AK: 140 QRS: 46 T: 30 INTERPRETIVE STATEMENTS: Sinus bradycardia Otherwise normal ECG No previous ECG available for comparison Electronically Signed On 09-01-23 16:52:26 HEALTH SERVICES ADMINISTRATOR by Solomon Zepeda
== END ==
LOC: ER 15:59
DX: J85.1 Abscess of lung with pneumonia (principal); J90 Pleural effusion, not elsewhere classified; D64.9 Anemia, unspecified; A41.9 Sepsis, unspecified organism; R05.9 Cough, unspecified; R09.89 Other specified symptoms and signs involving the circulatory and respiratory systems; R06.02 Shortness of breath; J45.909 Unspecified asthma, uncomplicated; I48.91 Unspecified atrial fibrillation; Z11.52 Encounter for screening for COVID-19
CPT/HCPCS: 93005 ×2; 87040 ×2; 85025; 80048; 36415; 86900; 86850; 85610; 86901; 83605; 85730; 84484; 87804 ×2; 71260; 71045; 94760 ×2; 99285; 87811; 94002; 94660; Q9967; J7050 ×2; J7030 ×2; J0696; J7040